=== PATIENT | male | born 1940 | race Caucasian/White ===

== ENCOUNTER 2016-05-08 09:45 | Day surgery (SDC) | payer OTHER, BC ==
[2016-05-04 16:39] VITALS: BMI 26.6
[2016-05-08] MEDS ORDERED: MIDAZOLAM HCL 2 MG/2 ML SINGLE DOSE VIAL ONE ×2 (13:21→13:33)
[2016-05-08] MEDS ORDERED: KETOROLAC TROMETHAMINE 30 MG/1 ML VIAL ONE (13:21)
[2016-05-08] MEDS ORDERED: PROPOFOL 20 ML ONE ×2 (13:21→13:22)
[2016-05-08] MEDS ORDERED: LEVOFLOXACIN 500 MG PREMIX BAG IVPB ONE (13:32)
[2016-05-08] MEDS ORDERED: PROMETHAZINE HCL 25 MG/1 ML VIAL IVPUSH PRN (13:58)
[2016-05-08] MEDS ORDERED: oxyCODONE HCL 5 MG TABLET PO PRN (13:58)
[2016-05-08] MEDS ORDERED: ONDANSETRON 4 MG/2 ML VIAL IVPUSH PRN (13:58)
--- NOTE | 2016-05-08 14:16 | OP ---
Operative Note - Note: Operative Date: 05/08/16 Pre-Operative Diagnosis: left renal calculus Operation: Left ESWL Post-Operative Diagnosis: Same as Pre-op Surgeon: Jeovany Flores MD. Anesthesia: General
[2016-05-08 14:48] VITALS: TEMP 98.1
--- NOTE | 2016-05-08 16:12 | OP ---
DATE OF OPERATION: 05/08/2016 PREOPERATIVE DIAGNOSIS: Left renal calculus. POSTOPERATIVE DIAGNOSIS: Left renal calculus. PROCEDURE: Left extracorporeal shock-wave lithotripsy. HISTORY: This is a very pleasant 75-year-old gentleman with a history of preoperative imaging significant for a 12-mm left renal calculus. After discussing the treatment options, the patient elected to undergo the above-stated procedure. Risks and benefits of treatment and alternative treatments discussed in detail, questions were answered. BRIEF OPERATIVE NOTE: The patient was brought into the operating room, placed in supine position. Once sedation was administered, the stone was localized using sonography and fluoroscopy. Approximately 2500 shocks were delivered in electromagnetic fashion. The stone appeared to fragment radiographically. At this time, the patient was brought to the recovery room in stable and satisfactory condition, will be discharged and follow in 1 week as an outpatient in the office. DAVID MITTAL M.D. [id number]
[2016-05-08 16:22] VITALS: BP 141/70; PULSE 58
[2016-05-09] MEDS ORDERED: ASPIRIN 81 MG CHEWABLE TABLETS PO SCH (10:00)
== END 2016-05-08 16:15 | disposition home or self-care (01) ==
LOC: JASU-SURG 09:45
PROVIDERS: ATTEND Urology
PROC: 0TF4XZZ Fragmentation in Left Kidney Pelvis, External Approach (ICD-10-PCS; principal; 2016-05-08 11:30)
DX: N20.0 Calculus of kidney (principal)
CPT/HCPCS: 94760

== ENCOUNTER 2017-01-25 14:58 | Inpatient (IN) | payer OTHER, BC ==
[2017-01-25] MEDS ORDERED: CEFTRIAXONE 1 GM in DEXTROSE 5%-WATER - 50 ML IVPB ONE (15:28)
[2017-01-25] MEDS ORDERED: CEFTRIAXONE 50 ML ONE (15:35)
--- NOTE | 2017-01-25 15:51 | PDOC ---
History of Present Illness - General History Source: Patient Exam Limitations: No Limitations - History of Present Illness Initial Comments: 01/25/17 16:03 Patient is a 76 year old male with a significant past medical history of who presents to the ED with complaints of hematuria that began 2 days ago. Patient reports getting prostate biopsy [address] toth. He reports experiencing chills, nausea, and fever today at 2:30pm secondary to hematuria. Patient reports experiencing intermittent episodes of weakness secondary to hematuria. He reports being prescribed two antibiotics following prostate biopsy, one 800 mg and the second 500 mg, name unknown. Denies chest pain, SOB. Denies diarrhea, constipation. Denies any other symptoms. Allergies: None Surgical history: None Social history: Lives with . No alcohol. No smoking. No illicit drugs. PMD: Dr. Salcedo. Dr. Toth <Omari Guerra - Last Filed: 01/25/17 16:03> - General History Source: Patient Exam Limitations: No Limitations <Daljit Gardner - Last Filed: 01/29/17 16:29> - General Chief Complaint: Nausea Stated Complaint: POST-PROCEDURE, NAUSEA (PCP SENT) Time Seen by Provider: 01/25/17 15:26 Past History <Omari Guerra - Last Filed: 01/25/17 16:03> - Past Medical History Anemia: No Cardiac Disorders: Yes (CATH WITHOUT STENTS) Disorders: Yes (kidney stones) Kidney Stones: Yes - Surgical History Abdominal Surgery: No Cardiac Surgery: Yes GI Surgery: Yes (Ingun\nal hernia repair) - Immunization History Immunization Up to Date: Yes - Suicide/Smoking/Psychosocial Hx Smoking Status: Yes Smoking History: Current every day smoker Number of Cigarettes Smoked Daily: 15 Information on smoking cessation initiated: No 'Breaking Loose' booklet given: 05/08/16 Hx Alcohol Use: No Drug/Substance Use Hx: No Substance Use Type: None <Daljit Gardner - Last Filed: 01/29/17 16:29> - Past Medical History Allergies/Adverse Reactions: Allergies Allergy/AdvReac Type Severity Reaction Status Date / Time No Known Allergies Allergy Verified 01/25/17 14:59 Home Medications: Ambulatory Orders Aspirin [ASA -] 81 mg PO DAILY 03/20/16 Review of Systems - Review of Systems Able to Perform ROS?: Yes Comments:: 01/25/17 16:03 GENERAL/CONSTITUTIONAL: +Chills. +fever. No weakness. HEAD, EYES, EARS, NOSE AND THROAT: No change in vision. No ear pain or discharge. No sore throat. CARDIOVASCULAR: No chest pain or shortness of breath. RESPIRATORY: +Nausea No cough, wheezing, or hemoptysis. GASTROINTESTINAL: No vomiting, diarrhea or constipation. GENITOURINARY: +Hematuria No dysuria, frequency, or change in urination. MUSCULOSKELETAL: No joint or muscle swelling or pain. No neck or back pain. SKIN: No rash NEUROLOGIC: No headache, vertigo, loss of consciousness, or change in strength/ sensation. ENDOCRINE: No increased thirst. No abnormal weight change. HEMATOLOGIC/LYMPHATIC: No anemia, easy bleeding, or history of blood clots. ALLERGIC/IMMUNOLOGIC: No hives or skin allergy. All Other Systems: Reviewed and Negative <Omari Guerra - Last Filed: 01/25/17 16:03> *Physical Exam - Vital Signs Last Vital Signs Temp Pulse Resp BP Pulse Ox 99.3 F 87 18 144/65 94 L 01/25/17 14:59 01/25/17 14:59 01/25/17 14:59 01/25/17 14:59 01/25/17 14:59 - Physical Exam Comments: 01/25/17 16:03 GENERAL: Awake, alert, and fully oriented, in no acute distress HEAD: No signs of trauma EYES: PERRLA, EOMI, sclera anicteric, conjunctiva clear ENT: Auricles normal inspection, hearing grossly normal, nares patent, oropharynx clear without exudates. Moist mucosa NECK: Normal ROM, supple, no lymphadenopathy, JVD, or masses LUNGS: Breath sounds equal, clear to auscultation bilaterally. No wheezes, and no crackles HEART: Regular rate and rhythm, normal S1 and S2, no murmurs, rubs or gallops ABDOMEN: Soft, nontender, normoactive bowel sounds. No guarding, no rebound. No masses EXTREMITIES: Normal range of motion, no edema. No clubbing or cyanosis. No cords, erythema, or tenderness NEUROLOGICAL: Cranial nerves II through XII grossly intact. Normal speech, normal gait SKIN: Warm, Dry, normal turgor, no rashes or lesions noted. <Omari Guerra - Last Filed: 01/25/17 16:03> - Vital Signs Last Vital Signs Temp Pulse Resp BP Pulse Ox 99.3 F 87 18 144/65 94 L 01/25/17 14:59 01/25/17 14:59 01/25/17 14:59 01/25/17 14:59 01/25/17 14:59 <Daljit Gardner - Last Filed: 01/29/17 16:29> Heart Score/ECG Review #1 ECG reviewed & interpreted by me at: 16:20 01/25/17 16:17 NSR 82, left axis deviation, no std/catherine, QTC 420 msec <Daljit Gardner - Last Filed: 01/29/17 16:29> ED Treatment Course - Medications Given in the ED: ED Medications Discontinued Medications Generic Name Dose Route Start Last Admin Trade Name Freq PRN Reason Stop Dose Admin Ceftriaxone Sodium 1 gm/ 50 mls @ 100 mls/hr 01/25/17 15:28 01/25/17 15:55 Dextrose IVPB 01/25/17 15:57 100 mls/hr ONCE ONE Administration <Omari Guerra - Last Filed: 01/25/17 16:03> - LABORATORY CBC & Chemistry Diagram: 01/29/17 06:30 01/29/17 06:30 <Daljit Gardner - Last Filed: 01/29/17 16:29> Medical Decision Making - Medical Decision Making 01/25/17 15:47 A portion of this note was documented by scribe services under my direction. I have reviewed the details of the note, within reason, and agree with the documentation with the following case summary and management plan written by me. Patient treated in the ED. Nursing notes are reviewed and incorporated into the medical decision-making. Vital signs reviewed. Peripheral IV access obtained by the nurse, laboratory studies are drawn and sent, reviewed and interpreted by myself. Vital Signs Temp Pulse Resp BP Pulse Ox 99.3 F 87 18 144/65 94 L 01/25/17 14:59 01/25/17 14:59 01/25/17 14:59 01/25/17 14:59 01/25/17 14:59 76-year-old male with no medical history presents with fever 101.9 today. 2 days ago, the patient was undergoing a prostate biopsy to rule out prostate cancer. Yesterday, noted to have chills and today developed a fever 101.9. Reports some mild hematuria which was expected post biopsy. Denies cough, vomiting, diarrhea, dysuria. Case discussed with Dr. Toth and aware of plan. The patient may potentially have fevers and infection secondary to seeding from biopsy. We'll give empiric ceftriaxone and obtain labs including cultures. We' ll touch base with patient's urologist Dr. Toth for disposition. <Daljit Gardner - Last Filed: 01/29/17 16:29> *DC/Admit/Observation/Transfer - Attestations Scribe Attestion: 01/25/17 16:03 Documentation prepared by Omari Guerra, acting as medical attendant for Daljit Gardner MD. <Omari Guerra - Last Filed: 01/25/17 16:03> <Daljit Gardner - Last Filed: 01/29/17 16:29> Diagnosis at time of Disposition: Fever - Referrals
[2017-01-25] MEDS ORDERED: ACETAMINOPHEN 325 MG TABLET (FP) PO ONE (15:54)
[2017-01-25] MEDS ORDERED: ONDANSETRON 4 MG/2 ML VIAL IVPB ONE (15:54)
[2017-01-25] MEDS ORDERED: ONDANSETRON 4 MG/2 ML VIAL ONE (15:56)
[2017-01-25] MEDS ORDERED: ACETAMINOPHEN 325 MG TABLET (FP) ONE (15:56)
[2017-01-25 16:32] LABS: BASOPHIL 0.3 % (0-2.0); EOSINOPHIL 1.7 % (0-4.5); MCH 31.3 pg (25.7-33.7); MCHC 33.5 g/dl (32.0-35.9); MEAN CELL VOLUME 93.5 fl (80-96); MEAN PLT VOLUME 9.4 fl (7.5-11.1); NEUTROPHILS 88.8 % (42.8-82.8); PLATELET COUNT 133 K/MM3 (134-434); WHITE BLOOD COUNT 12.8 K/mm3 (4.0-10.0)
[2017-01-25 16:45] LABS: URINE APPEARANCE CLOUDY; URINE BILIRUBIN NEGATIVE (NEGATIVE); URINE BLOOD 3+ (NEGATIVE); URINE COLOR YELLOW; URINE GLUCOSE (UA) NEGATIVE (NEGATIVE); URINE KETONE TRACE (NEGATIVE); URINE NITRITE NEGATIVE (NEGATIVE); URINE UROBILINOGEN NEGATIVE mg/dL (0.2-1.0)
--- NOTE | 2017-01-25 16:50 | PDOC ---
*Physical Exam - Vital Signs Last Vital Signs Temp Pulse Resp BP Pulse Ox 99.3 F 87 18 144/65 94 L 01/25/17 14:59 01/25/17 14:59 01/25/17 14:59 01/25/17 14:59 01/25/17 14:59 ED Treatment Course - LABORATORY CBC & Chemistry Diagram: 01/25/17 16:00 01/25/17 16:00 - ADDITIONAL ORDERS Additional order review: 01/25/17 16:00 RBC 4.47 MCV 93.5 MCHC 33.5 RDW 14.0 MPV 9.4 Neutrophils % 88.8 H D Lymphocytes % 4.7 L D Monocytes % 4.5 Eosinophils % 1.7 Basophils % 0.3 - Medications Given in the ED: ED Medications Discontinued Medications Generic Name Dose Route Start Last Admin Trade Name Freq PRN Reason Stop Dose Admin Acetaminophen 650 mg 01/25/17 15:54 01/25/17 16:03 Tylenol - PO 01/25/17 15:55 650 mg ONCE ONE Administration Ceftriaxone Sodium 1 gm/ 50 mls @ 100 mls/hr 01/25/17 15:28 01/25/17 15:55 Dextrose IVPB 01/25/17 15:57 100 mls/hr ONCE ONE Administration Ondansetron HCl 4 mg 01/25/17 15:54 01/25/17 16:03 Zofran Injection IVPB 01/25/17 15:55 4 mg ONCE ONE Administration Medical Decision Making - Medical Decision Making 01/25/17 16:50 pt signed out to me from Dr. Gardner pt s/p prostate biopsy 2 days ago, on cipro presents with fevers. noted for leukocytpsis of [address] Flores PMLanny salcedo anticipate admission for failed outpatient management and suspicion o bacteremia 01/25/17 17:[address] salcedo agree wit [facility] for management of fever suspected bacteremia stable for [facility] Case discussed in detail with admitting physician including history, physical exam and ancillary studies. Admitting physician has assumed care for the patient, will follow all pending diagnostics and will complete the evaluation and treatment. *DC/Admit/Observation/Transfer Diagnosis at time of Disposition: Fever Qualifiers: Fever type: due to other condition Qualified Code(s): R50.81 - Fever presenting with conditions classified elsewhere; R50.81 - Fever presenting with conditions classified elsewhere - Discharge Dispostion Condition at time of disposition: Stable Admit: Yes - Referrals Referrals: Matt Salcedo MD [Primary Care Provider] - - Patient Instructions - Post Discharge Activity
[2017-01-25 16:55] LABS: INR 1.12 (0.82-1.09); PROTHROMBIN TIME (PATIENT) 12.4 SEC (9.98-11.88)
[2017-01-25 16:58] LABS: ALBUMIN 3.9 g/dl (3.4-5.0); ANION GAP 10 (8-16); BILIRUBIN,TOTAL 0.4 mg/dL (0.2-1.0); CALCIUM 8.8 mg/dL (8.5-10.1); CO2 26 mmol/L (21-32); CREATININE 1.7 mg/dL (0.7-1.3); GLUCOSE,RANDOM 88 mg/dL (74-106); SGOT/AST 22 U/L (15-37); SGPT/ALT 23 U/L (12-78); TOT PROT 7.1 g/dl (6.4-8.2)
[2017-01-25 17:00] LABS: ALK PHOS 68 U/L (45-117); CPK 184 IU/L (39-308); TROPONIN I < 0.02 ng/ml (0.00-0.05)
[2017-01-25 17:01] LABS: URINE PROTEIN 1+ (NEGATIVE)
[2017-01-25 17:02] LABS: URINE MUCUS RARE; URINE RBC 2398 /hpf (0-3); URINE WBC 97 /hpf (3-5)
[2017-01-25 17:44] LABS: URINE LEUK ESTERASE 1+ (NEGATIVE)
[2017-01-25 18:18] LABS: VENOUS PH 7.4 (7.32-7.42)
[2017-01-25 18:19] LABS: VENOUS BLOOD GAS HCO3 25.6 meq/L (19-25)
[2017-01-25] MEDS: SODIUM CHLORIDE 1,000 ML IV SCH (21:03)
[2017-01-25] MEDS: ONDANSETRON 4 MG/2 ML VIAL IVPB PRN (21:04)
[2017-01-26] MEDS: ACETAMINOPHEN 325 MG TABLET (FP) PO PRN ×3 (01:38→19:06)
[2017-01-26] MEDS: ZOLPIDEM TARTRATE 5 MG TABLET PO PRN (01:39)
[2017-01-26 02:34] VITALS: BMI 27.4
[2017-01-26] MEDS ORDERED: FLU VACCINE QUAD 60 MCG/0.5 ML (MDV 17-18) IM ONE (02:34)
[2017-01-26] MEDS ORDERED: PNEUMOC 13-VAL CONJ-DIP CRM/PF 0.5 ML DISP.SYRIN IM ONE (02:34)
[2017-01-26] MEDS: ONDANSETRON 4 MG/2 ML VIAL IVPB PRN (03:48)
[2017-01-26 07:12] LABS: BASOPHIL 0.2 % (0-2.0); EOSINOPHIL 1.7 % (0-4.5); MCH 31.1 pg (25.7-33.7); MEAN CELL VOLUME 94.3 fl (80-96); MEAN PLT VOLUME 9.1 fl (7.5-11.1); NEUTROPHILS 77.4 % (42.8-82.8); PLATELET COUNT 107 K/MM3 (134-434); RDW 13.8 % (11.9-15.9); WHITE BLOOD COUNT 12.2 K/mm3 (4.0-10.0)
[2017-01-26 07:30] LABS: ALK PHOS 53 U/L (45-117); ANION GAP 6 (8-16); BILIRUBIN,TOTAL 0.6 mg/dL (0.2-1.0); CALCIUM 8.5 mg/dL (8.5-10.1); CO2 28 mmol/L (21-32); CREATININE 1.7 mg/dL (0.7-1.3); GLUCOSE,RANDOM 103 mg/dL (74-106); SGOT/AST 17 U/L (15-37); SGPT/ALT 17 U/L (12-78)
[2017-01-26] MEDS: CEFTRIAXONE 1 GM in DEXTROSE 5%-WATER - 50 ML IVPB SCH ×2 (10:00→11:32)
[2017-01-26] MEDS ORDERED: DEXTROSE 5%-WATER - 50 ML IVPB ONE (10:36)
[2017-01-26] MEDS ORDERED: cefTRIAXone SODIUM 1 GM VIAL ONE (10:36)
[2017-01-26] MEDS: PANTOPRAZOLE 40 MG TABLET (FP) PO SCH (10:44)
[2017-01-26] MEDS ORDERED: PT OWN MED DRAWER 7, Y5N ONE (13:12)
--- NOTE | 2017-01-26 13:36 | CON.ID ---
Consult Consult Specialty:: infectious diseases Referred by:: Reason for Consultation:: sepsis,bacteremia - History of Present Illness Chief Complaint: weakness nausea and fever History of Present Illness: 76 year old male wiadmitted with complaints of hematuria that began 2 days ago. Patient reports getting prostate biopsy 2 days ago . He reports experiencing chills, nausea, and fever and hematuria. Patient reports experiencing intermittent episodes of weakness He reports being prescribed two antibiotics following prostate biopsy, one 800 mg and the second 500 mg, name unknown. patient mentions that he has been not feeling after being in the hospital patient got ceftriaxone and inspite of that he has been spiking high grade fever also his blood cx has turned positive patients blood pressure has been on the lower side and after fluids patient blood pressure has stabilized no other issues patient has been also c/o of chills - History Source History Provided By: Patient Limitations to Obtaining History: No Limitations - Alcohol/Substance Use Hx Alcohol Use: No - Smoking History Smoking history: Current every day smoker Aproximately how many cigarettes per day: 15 Home Medications - Allergies Allergies/Adverse Reactions: Allergies Allergy/AdvReac Type Severity Reaction Status Date / Time No Known Allergies Allergy Verified 01/25/17 14:59 - Home Medications Home Medications: Ambulatory Orders Aspirin [ASA -] 81 mg PO DAILY 03/20/16 Review of Systems - Review of Systems Constitutional: reports: Chills, Fever HENT: reports: No Symptoms Neck: reports: No Symptoms Cardiovascular: reports: No Symptoms Respiratory: reports: No Symptoms Gastrointestinal: reports: Nausea Genitourinary: reports: Hematuria, Pain Integumentary: reports: No Symptoms Neurological: reports: No Symptoms Endocrine: reports: No Symptoms Hematology/Lymphatic: reports: No Symptoms Psychiatric: reports: No Symptoms Physical Exam Vital Signs: Vital Signs Temperature 100.2 F H 01/26/17 12:20 Pulse Rate 24 L 01/26/17 12:20 Respiratory Rate 81 H 01/26/17 12:20 Blood Pressure 109/73 01/26/17 12:20 O2 Sat by Pulse Oximetry (%) 99 01/25/17 21:00 Constitutional: Yes: Well Nourished, Calm, Mild Distress Eyes: Yes: Conjunctiva Clear HENT: Yes: Atraumatic Neck: Yes: Supple, Trachea Midline Cardiovascular: Yes: Regular Rate and Rhythm Respiratory: Yes: Regular, CTA Bilaterally Gastrointestinal: Yes: Normal Bowel Sounds, Soft Renal/: Yes: Hematuria Musculoskeletal: Yes: WNL Extremities: Yes: WNL Neurological: Yes: Alert, Oriented Psychiatric: Yes: Alert, Oriented Labs: CBC, BMP 01/26/17 06:00 01/26/17 06:00 Assessment/Plan patient in sepsis sepsis hypotension bacteremia gm negative nausea r/o prostatic abscess/collection leukocytosis plan i ahve started patient on meropenam will order prostate studies very close watch on his bp monitor fever rest as per primary team
[2017-01-26] MEDS: MEROPENEM 1 GM in DEXTROSE 5%-WATER - 100 ML IVPB SCH ×2 (14:02→19:08)
--- NOTE | 2017-01-26 19:15 | EKG ---
Test Reason : Blood Pressure : / mmHG Vent. Rate : 082 BPM Atrial Rate : 082 BPM P-R Int : 154 ms QRS Dur : 108 ms QT Int : 360 ms P-R-T Axes : 060 -54 042 degrees QTc Int : 420 ms NORMAL SINUS RHYTHM LEFT ANTERIOR FASCICULAR BLOCK ABNORMAL ECG WHEN COMPARED WITH ECG OF 20-MAR-2016 07:33, ABSENCE OF VPBs REPEAT EKG IF CLINICALLY INDICATED Confirmed by DIANA WOODARD MD ([id number]) on 01/26/2017 7:14:30 PM Referred By: Confirmed By:DIANA WOODARD MD
--- NOTE | 2017-01-26 20:57 | HP ---
Admitting History and Physical - Primary Care Physician PCP: Matt Salcedo - Admission Chief Complaint: fever with chills History of Present Illness: 76 year old male with no significant past medical history admitted with c/o fever with chills, nausea, and hematuria. Patient is s/p prostate biopsy [address] Schilling. He started feeling weak in the night after coming back from the biopsy. The next day he developed low grade fever with chills and hematuria. He called the urologist, who prescribed abx for him. His condition became progressively worse and was advised to go to the hospital. Patient seen and examined. Still c/o nausea. Continues to have fever with chills , and hematuria. History Source: Patient Limitations to Obtaining History: No Limitations - Past Medical History Renal/: Yes: BPH - Smoking History Smoking history: Current every day smoker Aproximately how many cigarettes per day: 15 - Alcohol/Substance Use Hx Alcohol Use: No Home Medications - Allergies Allergies/Adverse Reactions: Allergies Allergy/AdvReac Type Severity Reaction Status Date / Time No Known Allergies Allergy Verified 01/25/17 14:59 - Home Medications Home Medications: Ambulatory Orders Aspirin [ASA -] 81 mg PO DAILY 03/20/16 Review of Systems - Review of Systems Constitutional: reports: Chills, Fever, Lethargy, Weakness Gastrointestinal: reports: Nausea Genitourinary: reports: Hematuria Physical Examination Vital Signs: Vital Signs Temperature 100.1 F H 01/26/17 20:35 Pulse Rate 67 01/26/17 20:35 Respiratory Rate 20 01/26/17 20:35 Blood Pressure 114/54 01/26/17 20:35 O2 Sat by Pulse Oximetry (%) 95 01/26/17 11:00 Constitutional: Yes: Well Nourished, Anxious, Mild Distress Eyes: Yes: Conjunctiva Clear, EOM Intact HENT: Yes: Atraumatic, Normocephalic Neck: Yes: Supple, Trachea Midline Cardiovascular: Yes: Regular Rate and Rhythm Respiratory: Yes: Regular, CTA Bilaterally Gastrointestinal: Yes: Normal Bowel Sounds, Soft ...Rectal Exam: Yes: Deferred Extremities: Yes: WNL Edema: No Peripheral Pulses WNL: Yes Neurological: Yes: Alert, Oriented ...Motor Strength: WNL Labs: CBC, BMP 01/26/17 06:00 01/26/17 06:00 Imaging - Results Chest X-ray: Report Reviewed Assessment/Plan 1) Sepsis secondary to source Blood cultures prelim report: Gram Negative Bacilli. ID consult appreciated. Continue Ceftriaxone and Meropenem. 2) Acute renal Failure Continue IV fluids 3) Hematuria S/P Prostae biopsy 2 days ago. Urologist consulted.
[2017-01-26] MEDS: SODIUM CHLORIDE 1,000 ML IV SCH (21:19)
[2017-01-27] MEDS: ACETAMINOPHEN 325 MG TABLET (FP) PO PRN ×3 (01:15→17:14)
[2017-01-27] MEDS: MEROPENEM 1 GM in DEXTROSE 5%-WATER - 100 ML IVPB SCH ×3 (01:51→17:14)
[2017-01-27] MEDS: SODIUM CHLORIDE 1,000 ML IV SCH ×2 (05:00→21:40)
[2017-01-27 07:24] LABS: ALBUMIN 2.8 g/dl (3.4-5.0); ANION GAP 7 (8-16); BASOPHIL 0.4 % (0-2.0); CALCIUM 7.9 mg/dL (8.5-10.1); CO2 26 mmol/L (21-32); EOSINOPHIL 2.9 % (0-4.5); GLUCOSE,RANDOM 96 mg/dL (74-106); MCH 31.4 pg (25.7-33.7); MCHC 33.7 g/dl (32.0-35.9); MEAN CELL VOLUME 93.2 fl (80-96); MEAN PLT VOLUME 8.9 fl (7.5-11.1); NEUTROPHILS 77.2 % (42.8-82.8); PLATELET COUNT 90 K/MM3 (134-434); RDW 13.7 % (11.9-15.9); WHITE BLOOD COUNT 7.7 K/mm3 (4.0-10.0)
[2017-01-27 07:29] LABS: ALK PHOS 55 U/L (45-117); BILIRUBIN,TOTAL 0.5 mg/dL (0.2-1.0); CREATININE 1.4 mg/dL (0.7-1.3); SGOT/AST 20 U/L (15-37); SGPT/ALT 20 U/L (12-78); TOT PROT 5.8 g/dl (6.4-8.2)
[2017-01-27] MEDS ORDERED: cefTRIAXone SODIUM 1 GM VIAL ONE (10:15)
[2017-01-27] MEDS ORDERED: DEXTROSE 5%-WATER - 50 ML IVPB ONE (10:15)
[2017-01-27] MEDS: CEFTRIAXONE 1 GM in DEXTROSE 5%-WATER - 50 ML IVPB SCH (10:21)
[2017-01-27] MEDS: PANTOPRAZOLE 40 MG TABLET (FP) PO SCH (10:22)
--- NOTE | 2017-01-27 14:01 | PN ---
Progress Note, Physician History of Present Illness: spiked fevers feels better currently afebrile - Current Medication List Current Medications: Active Medications Acetaminophen (Tylenol -) 650 mg PO Q6H PRN PRN Reason: FEVER OR PAIN Last Admin: 01/27/17 08:54 Dose: 650 mg Ceftriaxone Sodium 1 gm/ (Dextrose) 50 mls @ 100 mls/hr IVPB DAILY SHRUTHI Last Admin: 01/27/17 10:21 Dose: 100 mls/hr Sodium Chloride (Normal Saline -) 1,000 mls @ 75 mls/hr IV ASDIR SHRUTHI Last Admin: 01/27/17 05:00 Dose: 75 mls/hr Meropenem 1 gm/ Dextrose 100 mls @ 100 mls/hr IVPB Q8H-IV SHRUTHI PRN Reason: Protocol Last Admin: 01/27/17 10:22 Dose: 100 mls/hr Ondansetron HCl (Zofran Injection) 4 mg IVPB Q6H PRN PRN Reason: NAUSEA Last Admin: 01/26/17 03:48 Dose: 4 mg Pantoprazole Sodium (Protonix -) 40 mg PO DAILY SHRUTHI Last Admin: 01/27/17 10:22 Dose: 40 mg Zolpidem Tartrate (Ambien -) 5 mg PO HS PRN Last Admin: 01/26/17 01:39 Dose: 5 mg - Objective Vital Signs: Vital Signs Temperature 99.4 F 01/27/17 09:10 Pulse Rate 70 01/27/17 09:10 Respiratory Rate 18 01/27/17 09:10 Blood Pressure 130/70 01/27/17 09:10 O2 Sat by Pulse Oximetry (%) 94 L 01/26/17 21:00 Constitutional: Yes: No Distress, Calm Cardiovascular: Yes: Regular Rate and Rhythm Respiratory: Yes: Regular, CTA Bilaterally Gastrointestinal: Yes: Normal Bowel Sounds, Soft Musculoskeletal: Yes: WNL Extremities: Yes: WNL Neurological: Yes: Alert, Oriented Labs: CBC, BMP 01/27/17 06:15 01/27/17 06:15 INR, PTT INR 1.12 (0.82-1.09) 01/25/17 16:00 - ....Imaging Ultrasound: Image Reviewed (report awaited) Assessment/Plan patient in sepsis sepsis hypotension bacteremia gm negative nausea r/o prostatic abscess/collection leukocytosis plan continue meropenam monitor fevers await for report of u/s rest as per primary
--- NOTE | 2017-01-27 17:11 | PN ---
Progress Note (short form) - Note Progress Note: Patient seen and examined. Feeling better as compared to yesterday. Still febrile and nauseous. Hematuria improving. Discussed in detail with patient. History Source: Patient Limitations to Obtaining History: No Limitations - Past Medical History Renal/: Yes: BPH - Smoking History Smoking history: Current every day smoker Aproximately how many cigarettes per day: 15 - Alcohol/Substance Use Hx Alcohol Use: No Home Medications - Allergies Allergies/Adverse Reactions: Allergies Allergy/AdvReac Type Severity Reaction Status Date / Time No Known Allergies Allergy Verified 01/25/17 14:59 - Home Medications Home Medications: Ambulatory Orders Aspirin [ASA -] 81 mg PO DAILY 03/20/16 Review of Systems - Review of Systems Constitutional: reports: Chills, Fever, Lethargy, Weakness Gastrointestinal: reports: Nausea Genitourinary: reports: Hematuria Physical Examination Vital Signs: Vital Signs Period Temp Pulse Resp BP Sys/Mon Pulse Ox Last 24 Hr 98.4 F-101.2 F 63-70 16-20 114-137/54-70 94-95 Constitutional: Yes: Well Nourished, Anxious, Mild Distress Eyes: Yes: Conjunctiva Clear, EOM Intact HENT: Yes: Atraumatic, Normocephalic Neck: Yes: Supple, Trachea Midline Cardiovascular: Yes: Regular Rate and Rhythm Respiratory: Yes: Regular, CTA Bilaterally Gastrointestinal: Yes: Normal Bowel Sounds, Soft ...Rectal Exam: Yes: Deferred Extremities: Yes: WNL Edema: No Peripheral Pulses WNL: Yes Neurological: Yes: Alert, Oriented ...Motor Strength: WNL Labs: CBC, BMP 01/27/17 06:15 01/27/17 06:15 Microbiology 01/25/17 15:50 Blood - Peripheral Venous Blood Culture - Preliminary NO GROWTH OBTAINED AFTER 48 HOURS, INCUBATION TO CONTINUE FOR 3 DAYS. 01/25/17 16:30 Urine - Urine Clean Catch Urine Culture - Final NO GROWTH OBTAINED 01/25/17 15:50 Blood - Peripheral Venous Blood Culture - Preliminary Non Lactose Fermenting Gnb Current Medications Acetaminophen (Tylenol -) 650 mg PO Q6H PRN PRN Reason: FEVER OR PAIN Last Admin: 01/27/17 08:54 Dose: 650 mg Ceftriaxone Sodium 1 gm/ (Dextrose) 50 mls @ 100 mls/hr IVPB DAILY SHRUTHI Last Admin: 01/27/17 10:21 Dose: 100 mls/hr Sodium Chloride (Normal Saline -) 1,000 mls @ 75 mls/hr IV ASDIR SHRUTHI Last Admin: 01/27/17 05:00 Dose: 75 mls/hr Meropenem 1 gm/ Dextrose 100 mls @ 100 mls/hr IVPB Q8H-IV SHRUTHI PRN Reason: Protocol Last Admin: 01/27/17 10:22 Dose: 100 mls/hr Ondansetron HCl (Zofran Injection) 4 mg IVPB Q6H PRN PRN Reason: NAUSEA Last Admin: 01/26/17 03:48 Dose: 4 mg Pantoprazole Sodium (Protonix -) 40 mg PO DAILY SHRUTHI Last Admin: 01/27/17 10:22 Dose: 40 mg Zolpidem Tartrate (Ambien -) 5 mg PO HS PRN Last Admin: 01/26/17 01:39 Dose: 5 mg Imaging - Results Chest X-ray: Report Reviewed Assessment/Plan 1) Sepsis secondary to source Blood cultures prelim report: Gram Negative Bacilli. Continue Ceftriaxone and Meropenem. ID follow up appreciated. 2) Acute renal Failure Improving. Continue IV fluids 3) Hematuria Improving S/P Prostate biopsy. Awaiting ultrasound results. Urologist consulted.
[2017-01-28] MEDS: MEROPENEM 1 GM in DEXTROSE 5%-WATER - 100 ML IVPB SCH ×3 (02:02→18:26)
[2017-01-28] MEDS: ACETAMINOPHEN 325 MG TABLET (FP) PO PRN ×2 (02:34→21:38)
[2017-01-28 08:10] LABS: BASOPHIL 0.6 % (0-2.0); EOSINOPHIL 4.8 % (0-4.5); MCHC 33.3 g/dl (32.0-35.9); MEAN CELL VOLUME 93.1 fl (80-96); MEAN PLT VOLUME 8.6 fl (7.5-11.1); PLATELET COUNT 91 K/MM3 (134-434); RDW 13.4 % (11.9-15.9); WHITE BLOOD COUNT 6.5 K/mm3 (4.0-10.0)
[2017-01-28] MEDS ORDERED: PT OWN MED DRAWER 7, Y5N ONE ×2 (10:28→18:19)
[2017-01-28] MEDS: PANTOPRAZOLE 40 MG TABLET (FP) PO SCH (10:34)
[2017-01-28 12:08] LABS: ALBUMIN 2.7 g/dl (3.4-5.0); ANION GAP 6 (8-16); BILIRUBIN,TOTAL 0.4 mg/dL (0.2-1.0); CALCIUM 7.9 mg/dL (8.5-10.1); CO2 26 mmol/L (21-32); CREATININE 1.1 mg/dL (0.7-1.3); GLUCOSE,RANDOM 94 mg/dL (74-106); SGOT/AST 22 U/L (15-37); SGPT/ALT 22 U/L (12-78); TOT PROT 5.6 g/dl (6.4-8.2)
[2017-01-28 12:09] LABS: ALK PHOS 50 U/L (45-117)
[2017-01-28] MEDS: CEFTRIAXONE 1 GM in DEXTROSE 5%-WATER - 50 ML IVPB SCH (12:49)
[2017-01-28] MEDS: SODIUM CHLORIDE 1,000 ML IV SCH (14:01)
--- NOTE | 2017-01-28 16:09 | CON.GU ---
Consult - History of Present Illness History of Present Illness: 76 yo male s/p prostate biopsy last week with Dr Flores, now admitted with fever, gross hematuria. Clinically improving with IV abx. Urine culture pos - Past Medical History Renal/: Yes: BPH - Alcohol/Substance Use Hx Alcohol Use: No - Smoking History Smoking history: Current every day smoker Aproximately how many cigarettes per day: 15 Home Medications - Allergies Allergies/Adverse Reactions: Allergies Allergy/AdvReac Type Severity Reaction Status Date / Time No Known Allergies Allergy Verified 01/25/17 14:59 - Home Medications Home Medications: Ambulatory Orders Aspirin [ASA -] 81 mg PO DAILY 03/20/16 Physical Exam- Vital Signs: Vital Signs Temperature 98.7 F 01/28/17 13:59 Pulse Rate 77 01/28/17 13:59 Respiratory Rate 20 01/28/17 09:19 Blood Pressure 135/72 01/28/17 13:59 O2 Sat by Pulse Oximetry (%) 95 01/28/17 11:00 Renal/: Yes: WNL Labs: CBC, BMP 01/28/17 07:40 01/28/17 07:40 Imaging - Results Ultrasound: Report Reviewed Problem List - Problems (1) Prostatitis, acute Assessment/Plan: resolving prostatitis, abx as per ID, no intervention necessary Code(s): N41.0 - ACUTE PROSTATITIS
--- NOTE | 2017-01-28 16:23 | PN ---
Physical Exam: SUBJECTIVE: Patient seen and examined at bedside. Hematuria only during micturation. Denies all c/o. OBJECTIVE: Vital Signs Period Temp Pulse Resp BP Sys/Mon Pulse Ox Last 24 Hr 98.6 F-100.2 F 60-77 18-20 121-147/59-76 95-95 GENERAL: The patient is awake, alert, and fully oriented, in no acute distress. LUNGS: Breath sounds equal, clear to auscultation bilaterally, no wheezes, no crackles, no accessory muscle use. HEART: Regular rate and rhythm, S1, S2 without murmur, rub or gallop. ABDOMEN: Soft, nontender, nondistended, normoactive bowel sounds, no guarding, no rebound, no hepatosplenomegaly, no masses. EXTREMITIES: 2+ pulses, warm, well-perfused, no edema. NEUROLOGICAL: Cranial nerves II through XII grossly intact. Normal speech, gait steady. Laboratory Results - last 24 hr 01/28/17 01/28/17 07:40 07:40 WBC 6.5 RBC 3.95 L Hgb 12.3 Hct 36.8 MCV 93.1 MCH 31.0 MCHC 33.3 RDW 13.4 Plt Count 91 L MPV 8.6 Neutrophils % 67.0 Lymphocytes % 17.4 D Monocytes % 10.2 Eosinophils % 4.8 H Basophils % 0.6 Sodium 142 Potassium 4.4 Chloride 110 H Carbon Dioxide 26 Anion Gap 6 L BUN 17 D Creatinine 1.1 D Creat Clearance w eGFR > 60 Random Glucose 94 Calcium 7.9 L Total Bilirubin 0.4 AST 22 ALT 22 Alkaline Phosphatase 50 Total Protein 5.6 L Albumin 2.7 L Active Medications Generic Name Dose Route Start Last Admin Trade Name Freq PRN Reason Stop Dose Admin Acetaminophen 650 mg 01/25/17 20:33 01/28/17 02:34 Tylenol - PO 650 mg Q6H PRN Administration FEVER OR PAIN Sodium Chloride 1,000 mls @ 75 mls/hr 01/25/17 20:45 01/28/17 14:01 Normal Saline - IV 75 mls/hr ASDIR SHRUTHI Administration Meropenem 1 gm/ Dextrose 100 mls @ 100 mls/hr 01/26/17 13:00 01/28/17 10:34 IVPB 100 mls/hr Q8H-IV SHRUTHI Administration Protocol CEFTRIAXONE 1 G/50 ML PREMIX 50 mls @ 100 mls/hr 01/29/17 10:00 Ceftriaxone 1 Gm-D5w Bag IVPB 02/01/17 10:29 DAILY SHRUTHI Ondansetron HCl 4 mg 01/25/17 20:33 01/26/17 03:48 Zofran Injection IVPB 4 mg Q6H PRN Administration NAUSEA Pantoprazole Sodium 40 mg 01/26/17 10:00 01/28/17 10:34 Protonix - PO 40 mg DAILY SHRUTHI Administration Zolpidem Tartrate 5 mg 01/26/17 01:23 01/26/17 01:39 Ambien - PO 5 mg HS PRN Administration ASSESSMENT/PLAN: A: 76yo man s/p prostate biopsy last week with acute prostatitis P: #Acute Prostatitis - meropenem - ceftriaxone - Appreciate - Appreciate ID #Sepsis- urinary - SIRS (+) upon arrival - SIRS resolved on 01/26 - WBC- WNL - Appreciate ID #F/E/N - replete prn - regular diet #PPX - OOB Dispo- requires continued IV abx therapy. Will d/c when transition to PO abx Visit type - Emergency Visit Emergency Visit: Yes ED Registration Date: 01/25/17 Care time: The patient presented to the Emergency Department on the above date and was hospitalized for further evaluation of their emergent condition. - New Patient This patient is new to me today: Yes Date on this admission: 01/28/17 - Critical Care Critical Care patient: No
--- NOTE | 2017-01-28 18:15 | PN ---
Progress Note, Physician History of Present Illness: doing well no issues afebrile - Current Medication List Current Medications: Active Medications Acetaminophen (Tylenol -) 650 mg PO Q6H PRN PRN Reason: FEVER OR PAIN Last Admin: 01/28/17 02:34 Dose: 650 mg Sodium Chloride (Normal Saline -) 1,000 mls @ 75 mls/hr IV ASDIR SHRUTHI Last Admin: 01/28/17 14:01 Dose: 75 mls/hr Meropenem 1 gm/ Dextrose 100 mls @ 100 mls/hr IVPB Q8H-IV SHRUTHI PRN Reason: Protocol Last Admin: 01/28/17 10:34 Dose: 100 mls/hr CEFTRIAXONE 1 G/50 ML PREMIX (Ceftriaxone 1 Gm-D5w Bag) 50 mls @ 100 mls/hr IVPB DAILY SHRUTHI Stop: 02/01/17 10:29 Ondansetron HCl (Zofran Injection) 4 mg IVPB Q6H PRN PRN Reason: NAUSEA Last Admin: 01/26/17 03:48 Dose: 4 mg Pantoprazole Sodium (Protonix -) 40 mg PO DAILY SHRUTHI Last Admin: 01/28/17 10:34 Dose: 40 mg Zolpidem Tartrate (Ambien -) 5 mg PO HS PRN Last Admin: 01/26/17 01:39 Dose: 5 mg - Objective Vital Signs: Vital Signs Temperature 98.7 F 01/28/17 13:59 Pulse Rate 77 01/28/17 13:59 Respiratory Rate 20 01/28/17 09:19 Blood Pressure 135/72 01/28/17 13:59 O2 Sat by Pulse Oximetry (%) 95 01/28/17 11:00 Constitutional: Yes: No Distress, Calm Cardiovascular: Yes: Regular Rate and Rhythm Respiratory: Yes: Regular, CTA Bilaterally Gastrointestinal: Yes: Normal Bowel Sounds, Soft Musculoskeletal: Yes: WNL Extremities: Yes: WNL Neurological: Yes: Alert, Oriented Psychiatric: Yes: Alert, Oriented Labs: CBC, BMP 01/28/17 07:40 01/28/17 07:40 INR, PTT INR 1.12 (0.82-1.09) 01/25/17 16:00 Assessment/Plan patient in sepsis sepsis hypotension bacteremia gm negative nausea r/o prostatic abscess/collection leukocytosis plan continue meropenam monitor fevers await for repeat cx
[2017-01-28] MEDS: ZOLPIDEM TARTRATE 5 MG TABLET PO PRN (21:38)
[2017-01-29] MEDS ORDERED: PT OWN MED DRAWER 7, Y5N ONE ×3 (00:43→17:29)
[2017-01-29] MEDS: MEROPENEM 1 GM in DEXTROSE 5%-WATER - 100 ML IVPB SCH ×3 (02:24→17:32)
[2017-01-29] MEDS: SODIUM CHLORIDE 1,000 ML IV SCH (05:00)
[2017-01-29 07:07] LABS: BASOPHIL 0.4 % (0-2.0); EOSINOPHIL 5.6 % (0-4.5); MCH 31.1 pg (25.7-33.7); MCHC 33.6 g/dl (32.0-35.9); MEAN CELL VOLUME 92.5 fl (80-96); MEAN PLT VOLUME 8.8 fl (7.5-11.1); NEUTROPHILS 59.5 % (42.8-82.8); PLATELET COUNT 98 K/MM3 (134-434); RDW 13.5 % (11.9-15.9); WHITE BLOOD COUNT 6.7 K/mm3 (4.0-10.0)
[2017-01-29 07:29] LABS: ANION GAP 6 (8-16); CALCIUM 7.8 mg/dL (8.5-10.1); CO2 29 mmol/L (21-32); GLUCOSE,RANDOM 96 mg/dL (74-106)
[2017-01-29] MEDS: PANTOPRAZOLE 40 MG TABLET (FP) PO SCH (10:35)
[2017-01-29] MEDS: CEFTRIAXONE 1 G/50 ML PREMIX 50 ML IVPB SCH (10:35)
--- NOTE | 2017-01-29 12:03 | CONSULT ---
Consult - text type - Consultation Consultation Note: 76 yo male s/p transrectal us guided prostate needle biopsy w pre procedural cefuroxime bactrim and tobramycin Pt became septic approx 24 hrs post procedure pos G neg BCult currently afebrile and wbc normalized Cont iv abx then po as per ID for pos BCult clinically doing well Biopsy report pending
[2017-01-29] MEDS: NICOTINE 21 MG/24 HOURS TOPICAL PATCH TD SCH (12:21)
--- NOTE | 2017-01-29 12:43 | PN ---
Progress Note, Physician History of Present Illness: doing well no issues afebrile - Current Medication List Current Medications: Active Medications Acetaminophen (Tylenol -) 650 mg PO Q6H PRN PRN Reason: FEVER OR PAIN Last Admin: 01/28/17 21:38 Dose: 650 mg Sodium Chloride (Normal Saline -) 1,000 mls @ 75 mls/hr IV ASDIR SHRUTHI Last Admin: 01/29/17 05:00 Dose: 75 mls/hr Meropenem 1 gm/ Dextrose 100 mls @ 100 mls/hr IVPB Q8H-IV SHRUTHI PRN Reason: Protocol Last Admin: 01/29/17 10:35 Dose: 100 mls/hr CEFTRIAXONE 1 G/50 ML PREMIX (Ceftriaxone 1 Gm-D5w Bag) 50 mls @ 100 mls/hr IVPB DAILY SHRUTHI Stop: 02/01/17 10:29 Last Admin: 01/29/17 10:35 Dose: 100 mls/hr Nicotine (Nicoderm Patch -) 21 mg TD DAILY SHRUTHI Last Admin: 01/29/17 12:21 Dose: 21 mg Ondansetron HCl (Zofran Injection) 4 mg IVPB Q6H PRN PRN Reason: NAUSEA Last Admin: 01/26/17 03:48 Dose: 4 mg Pantoprazole Sodium (Protonix -) 40 mg PO DAILY SHRUTHI Last Admin: 01/29/17 10:35 Dose: 40 mg - Objective Vital Signs: Vital Signs Temperature 98.4 F 01/29/17 09:34 Pulse Rate 72 01/29/17 09:34 Respiratory Rate 18 01/29/17 09:34 Blood Pressure 139/81 01/29/17 09:34 O2 Sat by Pulse Oximetry (%) 94 L 01/29/17 10:00 Constitutional: Yes: No Distress, Calm Cardiovascular: Yes: Regular Rate and Rhythm Respiratory: Yes: Regular, CTA Bilaterally Gastrointestinal: Yes: Normal Bowel Sounds, Soft Musculoskeletal: Yes: WNL Extremities: Yes: WNL Neurological: Yes: Alert, Oriented Psychiatric: Yes: Alert Labs: CBC, BMP 01/29/17 06:30 01/29/17 06:30 INR, PTT INR 1.12 (0.82-1.09) 01/25/17 16:00 Assessment/Plan patient in sepsis sepsis hypotension bacteremia gm negative nausea r/o prostatic abscess/collection leukocytosis plan continue meropenam repeat cx noted tomorrow will e the last day of iv abx then we will switch to oral on
--- NOTE | 2017-01-29 15:55 | PN ---
Progress Note, Physician Chief Complaint: Mr Rubio says he is feeling well and is without complaint. No cp, sob, n/v, pain on urination. - Current Medication List Current Medications: Active Medications Acetaminophen (Tylenol -) 650 mg PO Q6H PRN PRN Reason: FEVER OR PAIN Last Admin: 01/28/17 21:38 Dose: 650 mg Sodium Chloride (Normal Saline -) 1,000 mls @ 75 mls/hr IV ASDIR SHRUTHI Last Admin: 01/29/17 05:00 Dose: 75 mls/hr Meropenem 1 gm/ Dextrose 100 mls @ 100 mls/hr IVPB Q8H-IV SHRUTHI PRN Reason: Protocol Last Admin: 01/29/17 10:35 Dose: 100 mls/hr CEFTRIAXONE 1 G/50 ML PREMIX (Ceftriaxone 1 Gm-D5w Bag) 50 mls @ 100 mls/hr IVPB DAILY SHRUTHI Stop: 02/01/17 10:29 Last Admin: 01/29/17 10:35 Dose: 100 mls/hr Nicotine (Nicoderm Patch -) 21 mg TD DAILY SHRUTHI Last Admin: 01/29/17 12:21 Dose: 21 mg Ondansetron HCl (Zofran Injection) 4 mg IVPB Q6H PRN PRN Reason: NAUSEA Last Admin: 01/26/17 03:48 Dose: 4 mg Pantoprazole Sodium (Protonix -) 40 mg PO DAILY SHRUTHI Last Admin: 01/29/17 10:35 Dose: 40 mg - Objective Vital Signs: Vital Signs Temperature 36.8 C 01/29/17 13:55 Pulse Rate 69 01/29/17 13:55 Respiratory Rate 18 01/29/17 09:34 Blood Pressure 129/57 01/29/17 13:55 O2 Sat by Pulse Oximetry (%) 94 L 01/29/17 10:00 Constitutional: Yes: Well Nourished, No Distress, Calm Cardiovascular: Yes: Regular Rate and Rhythm. No: Gallop, Murmur, Rub Respiratory: Yes: Regular, CTA Bilaterally. No: Rales, Rhonchi, Wheezes Gastrointestinal: Yes: Normal Bowel Sounds, Soft. No: Distention, Tenderness Extremities: Yes: WNL Edema: No Labs: CBC, BMP 01/29/17 06:30 01/29/17 06:30 INR, PTT INR 1.12 (0.82-1.09) 01/25/17 16:00 Problem List - Problems (1) Prostatitis, acute Assessment/Plan: -improving -ID following and appreciate assistance -continue merrem and rocephin currently -plan to change to oral antibiotics in am Code(s): N41.0 - ACUTE PROSTATITIS (2) Sepsis Assessment/Plan: -present on admission -resolved Code(s): A41.9 - SEPSIS, UNSPECIFIED ORGANISM Qualifiers: Sepsis type: Escherichia coli Qualified Code(s): A41.51 - Sepsis due to Escherichia coli [E. coli]; A41.51 - Sepsis due to Escherichia coli [E. coli]; A41.51 - Sepsis due to Escherichia coli [E. coli] (3) JAMEEL (acute kidney injury) Assessment/Plan: -resolved -will stop IVF Code(s): N17.9 - ACUTE KIDNEY FAILURE, UNSPECIFIED
[2017-01-29] MEDS: ZOLPIDEM TARTRATE 5 MG TABLET PO PRN (21:36)
[2017-01-30] MEDS: MEROPENEM 1 GM in DEXTROSE 5%-WATER - 100 ML IVPB SCH ×3 (02:42→18:45)
[2017-01-30 08:09] LABS: BASOPHIL 0.5 % (0-2.0); EOSINOPHIL 4.9 % (0-4.5); MCHC 33.6 g/dl (32.0-35.9); MEAN CELL VOLUME 92.2 fl (80-96); MEAN PLT VOLUME 8.9 fl (7.5-11.1); NEUTROPHILS 59.3 % (42.8-82.8); PLATELET COUNT 108 K/MM3 (134-434); RDW 13.4 % (11.9-15.9); WHITE BLOOD COUNT 8.1 K/mm3 (4.0-10.0)
[2017-01-30 08:33] LABS: ANION GAP 6 (8-16); CALCIUM 8.3 mg/dL (8.5-10.1); CO2 28 mmol/L (21-32); GLUCOSE,RANDOM 82 mg/dL (74-106); MAGNESIUM 2.4 mg/dL (1.8-2.4)
[2017-01-30 08:34] LABS: CREATININE 0.9 mg/dL (0.7-1.3); PHOSPHOROUS 2.3 mg/dL (2.5-4.9)
[2017-01-30] MEDS ORDERED: PT OWN MED DRAWER 7, Y5N ONE ×2 (09:15→18:41)
[2017-01-30] MEDS: PANTOPRAZOLE 40 MG TABLET (FP) PO SCH (09:18)
[2017-01-30] MEDS: CEFTRIAXONE 1 G/50 ML PREMIX 50 ML IVPB SCH (09:18)
[2017-01-30] MEDS: ACETAMINOPHEN 325 MG TABLET (FP) PO PRN (09:20)
[2017-01-30] MEDS: NICOTINE 21 MG/24 HOURS TOPICAL PATCH TD SCH (09:21)
--- NOTE | 2017-01-30 14:10 | PN ---
Progress Note, Physician History of Present Illness: doing well no issues afebrile says he is feeling much better now - Current Medication List Current Medications: Active Medications Acetaminophen (Tylenol -) 650 mg PO Q6H PRN PRN Reason: FEVER OR PAIN Last Admin: 01/30/17 09:20 Dose: 650 mg Meropenem 1 gm/ Dextrose 100 mls @ 100 mls/hr IVPB Q8H-IV SHRUTHI PRN Reason: Protocol Last Admin: 01/30/17 09:21 Dose: 100 mls/hr CEFTRIAXONE 1 G/50 ML PREMIX (Ceftriaxone 1 Gm-D5w Bag) 50 mls @ 100 mls/hr IVPB DAILY SHRUTHI Stop: 02/01/17 10:29 Last Admin: 01/30/17 09:18 Dose: 100 mls/hr Nicotine (Nicoderm Patch -) 14 mg TD DAILY SHRUTHI Ondansetron HCl (Zofran Injection) 4 mg IVPB Q6H PRN PRN Reason: NAUSEA Last Admin: 01/26/17 03:48 Dose: 4 mg Pantoprazole Sodium (Protonix -) 40 mg PO DAILY SHRUTHI Last Admin: 01/30/17 09:18 Dose: 40 mg Zolpidem Tartrate (Ambien -) 5 mg PO HS PRN Last Admin: 01/29/17 21:36 Dose: 5 mg - Objective Vital Signs: Vital Signs Temperature 97.7 F 01/30/17 14:04 Pulse Rate 56 L 01/30/17 14:04 Respiratory Rate 16 01/30/17 06:00 Blood Pressure 129/77 01/30/17 14:04 O2 Sat by Pulse Oximetry (%) 94 L 01/30/17 09:00 Constitutional: Yes: No Distress, Calm Cardiovascular: Yes: Regular Rate and Rhythm Respiratory: Yes: Regular, CTA Bilaterally Gastrointestinal: Yes: Normal Bowel Sounds, Soft Musculoskeletal: Yes: WNL Extremities: Yes: WNL Neurological: Yes: Alert, Oriented Psychiatric: Yes: Alert, Oriented Labs: CBC, BMP 01/30/17 06:58 01/30/17 06:58 INR, PTT INR 1.12 (0.82-1.09) 01/25/17 16:00 Assessment/Plan patient in sepsis sepsis hypotension bacteremia gm negative nausea r/o prostatic abscess/collection leukocytosis plan continue meropenam tomorrow can switch to levaquin 750mg daily for another 9 days
--- NOTE | 2017-01-30 15:06 | PN ---
Progress Note, Physician Chief Complaint: Mr Rubio says he is feeling well. Denies cp, sob, n/v. - Current Medication List Current Medications: Active Medications Acetaminophen (Tylenol -) 650 mg PO Q6H PRN PRN Reason: FEVER OR PAIN Last Admin: 01/30/17 09:20 Dose: 650 mg Meropenem 1 gm/ Dextrose 100 mls @ 100 mls/hr IVPB Q8H-IV SHRUTHI PRN Reason: Protocol Last Admin: 01/30/17 09:21 Dose: 100 mls/hr CEFTRIAXONE 1 G/50 ML PREMIX (Ceftriaxone 1 Gm-D5w Bag) 50 mls @ 100 mls/hr IVPB DAILY SHRUTHI Stop: 02/01/17 10:29 Last Admin: 01/30/17 09:18 Dose: 100 mls/hr Nicotine (Nicoderm Patch -) 14 mg TD DAILY SHRUTHI Ondansetron HCl (Zofran Injection) 4 mg IVPB Q6H PRN PRN Reason: NAUSEA Last Admin: 01/26/17 03:48 Dose: 4 mg Pantoprazole Sodium (Protonix -) 40 mg PO DAILY SHRUTHI Last Admin: 01/30/17 09:18 Dose: 40 mg Zolpidem Tartrate (Ambien -) 5 mg PO HS PRN Last Admin: 01/29/17 21:36 Dose: 5 mg - Objective Vital Signs: Vital Signs Temperature 36.5 C 01/30/17 14:04 Pulse Rate 56 L 01/30/17 14:04 Respiratory Rate 16 01/30/17 06:00 Blood Pressure 129/77 01/30/17 14:04 O2 Sat by Pulse Oximetry (%) 94 L 01/30/17 09:00 Constitutional: Yes: Well Nourished, No Distress, Calm Cardiovascular: Yes: Regular Rate and Rhythm. No: Gallop, Murmur, Rub Respiratory: Yes: Regular, CTA Bilaterally. No: Rales, Rhonchi, Wheezes Gastrointestinal: Yes: Normal Bowel Sounds, Soft. No: Distention, Tenderness Extremities: Yes: WNL Edema: No Labs: CBC, BMP 01/30/17 06:58 01/30/17 06:58 INR, PTT INR 1.12 (0.82-1.09) 01/25/17 16:00 Problem List - Problems (1) Prostatitis, acute Code(s): N41.0 - ACUTE PROSTATITIS (2) Sepsis Code(s): A41.9 - SEPSIS, UNSPECIFIED ORGANISM Qualifiers: Sepsis type: Escherichia coli Qualified Code(s): A41.51 - Sepsis due to Escherichia coli [E. coli]; A41.51 - Sepsis due to Escherichia coli [E. coli]; A41.51 - Sepsis due to Escherichia coli [E. coli] (3) JAMEEL (acute kidney injury) Code(s): N17.9 - ACUTE KIDNEY FAILURE, UNSPECIFIED Assessment/Plan (1) Prostatitis, acute Assessment/Plan: -improving -ID following and appreciate assistance -continue merrem and rocephin currently -plan to change to oral antibiotics tomorrow Code(s): N41.0 - ACUTE PROSTATITIS (2) Sepsis Assessment/Plan: -present on admission -resolved Code(s): A41.9 - SEPSIS, UNSPECIFIED ORGANISM Qualifiers: Sepsis type: Escherichia coli Qualified Code(s): A41.51 - Sepsis due to Escherichia coli [E. coli]; A41.51 - Sepsis due to Escherichia coli [E. coli]; A41.51 - Sepsis due to Escherichia coli [E. coli] (3) JAMEEL (acute kidney injury) Assessment/Plan: -resolved Code(s): N17.9 - ACUTE KIDNEY FAILURE, UNSPECIFIED
[2017-01-30] MEDS ORDERED: FLU VACCINE QUAD 60 MCG/0.5 ML (MDV 17-18) IM ONE (19:19)
[2017-01-30] MEDS: ZOLPIDEM TARTRATE 5 MG TABLET PO PRN (22:06)
[2017-01-31] MEDS ORDERED: PT OWN MED DRAWER 7, Y5N ONE ×2 (01:59→11:01)
[2017-01-31] MEDS: MEROPENEM 1 GM in DEXTROSE 5%-WATER - 100 ML IVPB SCH ×2 (02:32→11:02)
[2017-01-31 06:55] LABS: BASOPHIL 0.7 % (0-2.0); EOSINOPHIL 5.6 % (0-4.5); MCH 31.1 pg (25.7-33.7); MEAN CELL VOLUME 91.4 fl (80-96); MEAN PLT VOLUME 8.5 fl (7.5-11.1); NEUTROPHILS 59.8 % (42.8-82.8); PLATELET COUNT 113 K/MM3 (134-434); RDW 13.3 % (11.9-15.9)
[2017-01-31 07:19] LABS: ANION GAP 6 (8-16); CALCIUM 8.2 mg/dL (8.5-10.1); CO2 28 mmol/L (21-32); GLUCOSE,RANDOM 93 mg/dL (74-106); MAGNESIUM 2.4 mg/dL (1.8-2.4); PHOSPHOROUS 2.7 mg/dL (2.5-4.9)
[2017-01-31 10:59] VITALS: TEMP 97.6
[2017-01-31] MEDS: PANTOPRAZOLE 40 MG TABLET (FP) PO SCH (11:02)
[2017-01-31] MEDS: NICOTINE 14 MG/24 HOURS TOPICAL PATCH TD SCH ×3 (11:03→12:57)
[2017-01-31] MEDS: CEFTRIAXONE 1 G/50 ML PREMIX 50 ML IVPB SCH (12:10)
--- NOTE | 2017-01-31 13:02 | DS ---
Physical Examination Vital Signs: Vital Signs Temperature 36.4 C 01/31/17 10:58 Pulse Rate 57 L 01/31/17 10:58 Respiratory Rate 20 01/31/17 10:58 Blood Pressure 137/68 01/31/17 10:58 O2 Sat by Pulse Oximetry (%) 96 01/30/17 21:00 Constitutional: Yes: Well Nourished, No Distress, Calm Cardiovascular: Yes: Regular Rate and Rhythm. No: Gallop, Murmur, Rub Respiratory: Yes: Regular, CTA Bilaterally. No: Rales, Rhonchi, Wheezes Gastrointestinal: Yes: Normal Bowel Sounds, Soft. No: Distention, Tenderness Extremities: Yes: WNL Edema: No Labs: CBC, BMP 01/31/17 06:40 01/31/17 06:40 Discharge Summary Reason For Visit: FEVER Current Active Problems JAMEEL (acute kidney injury) (Acute) Fever (Acute) Prostatitis, acute (Acute) Sepsis (Acute) Hospital Course: (1) Prostatitis, acute Code(s): N41.0 - ACUTE PROSTATITIS (2) Sepsis Code(s): A41.9 - SEPSIS, UNSPECIFIED ORGANISM Qualifiers: Sepsis type: Escherichia coli Qualified Code(s): A41.51 - Sepsis due to Escherichia coli [E. coli]; A41.51 - Sepsis due to Escherichia coli [E. coli]; A41.51 - Sepsis due to Escherichia coli [E. coli] (3) AJMEEL (acute kidney injury) Code(s): N17.9 - ACUTE KIDNEY FAILURE, UNSPECIFIED Mr Rubio is a pleasant 76 year old male who presented with sepsis secondary to prostatitis after biopsy. He was admitted to the hospital and seen by ID. He was started on meropenem. He improved significantly. One set of blood cultures comes back positive for e coli, sensitive to levofloxacin. He is currently stable for discharge home on oral levaquin. He should follow up with Dr Flores and Dr Salcedo. 31 minutes spent in preparation of this discharge Condition: Good - Instructions Diet, Activity, Other Instructions: resume previous diet and activity Referrals: Matt Salcedo MD [Primary Care Provider] - Jeovany Flores MD., MD [Staff Physician] - Rosie Kelley MD [Staff Physician] - Disposition: HOME - Home Medications Comprehensive Discharge Medication List: Ambulatory Orders Aspirin [ASA -] 81 mg PO DAILY 03/20/16 Lactobacillus Acidophilus [Acidophilus Lactobacillus] 1 each PO DAILY #14 capsule 01/31/17 Levofloxacin 750 mg PO DAILY #9 tablet 01/31/17
--- NOTE | 2017-01-31 13:22 | PN ---
Progress Note, Physician History of Present Illness: doing well no issues - Current Medication List Current Medications: Active Medications Acetaminophen (Tylenol -) 650 mg PO Q6H PRN PRN Reason: FEVER OR PAIN Last Admin: 01/30/17 09:20 Dose: 650 mg Meropenem 1 gm/ Dextrose 100 mls @ 100 mls/hr IVPB Q8H-IV SHRUTHI PRN Reason: Protocol Last Admin: 01/31/17 11:02 Dose: 100 mls/hr CEFTRIAXONE 1 G/50 ML PREMIX (Ceftriaxone 1 Gm-D5w Bag) 50 mls @ 100 mls/hr IVPB DAILY SHRUTHI Stop: 02/01/17 10:29 Last Admin: 01/31/17 12:10 Dose: 100 mls/hr Nicotine (Nicoderm Patch -) 14 mg TD DAILY SHRUTHI Last Admin: 01/31/17 12:57 Dose: 14 mg Ondansetron HCl (Zofran Injection) 4 mg IVPB Q6H PRN PRN Reason: NAUSEA Last Admin: 01/26/17 03:48 Dose: 4 mg Pantoprazole Sodium (Protonix -) 40 mg PO DAILY SHRUTHI Last Admin: 01/31/17 11:02 Dose: 40 mg Zolpidem Tartrate (Ambien -) 5 mg PO HS PRN Last Admin: 01/30/17 22:06 Dose: 5 mg - Objective Vital Signs: Vital Signs Temperature 97.6 F 01/31/17 10:58 Pulse Rate 57 L 01/31/17 10:58 Respiratory Rate 20 01/31/17 10:58 Blood Pressure 137/68 01/31/17 10:58 O2 Sat by Pulse Oximetry (%) 96 01/30/17 21:00 Constitutional: Yes: No Distress, Calm HENT: Yes: Atraumatic Cardiovascular: Yes: Regular Rate and Rhythm Respiratory: Yes: Regular, CTA Bilaterally Gastrointestinal: Yes: Normal Bowel Sounds, Soft Musculoskeletal: Yes: WNL Extremities: Yes: WNL Neurological: Yes: Alert, Oriented Psychiatric: Yes: Alert, Oriented Labs: CBC, BMP 01/31/17 06:40 01/31/17 06:40 INR, PTT INR 1.12 (0.82-1.09) 01/25/17 16:00 Assessment/Plan patient in sepsis sepsis hypotension bacteremia gm negative nausea r/o prostatic abscess/collection leukocytosis plan levaquin 750 mg for another 9 days
[2017-01-31 14:12] VITALS: BP 130/65; PULSE 64
== END 2017-01-31 15:35 | disposition home or self-care (01) | DRG 862 ==
LOC: JER 14:58 → SUPCPDRO 14:58 → JERBED 17:53 → J5S 19:53 → J7W 01-26 08:17 → J5S 01-26 08:52
PROVIDERS: ADMIT Internal Medicine Geriatric Medicine; ATTEND Internal Medicine
DX: T81.4XXA Infection following a procedure, initial encounter (principal); A41.51 Sepsis due to Escherichia coli [E. coli]; N17.9 Acute kidney failure, unspecified; N41.0 Acute prostatitis; Y92.018 Other place in single-family (private) house as the place of occurrence of the external cause; Y84.8 Other medical procedures as the cause of abnormal reaction of the patient, or of later complication, without mention of misadventure at the time of the procedure; I95.9 Hypotension, unspecified; R31.0 Gross hematuria; F17.210 Nicotine dependence, cigarettes, uncomplicated; R11.0 Nausea; N40.0 Benign prostatic hyperplasia without lower urinary tract symptoms
CPT/HCPCS: 36415; 76856-TC; 80048; 80053; 81003; 81015; 82553; 82803; 83605; 83735; 84100; 84484; 85025; 85610; 85730; 86850; 86900; 86901; 87040; 87086; 87186; 93005; 93010; 99284-25

== ENCOUNTER 2017-04-08 12:45 | Emergency (ER) | payer OTHER, BC ==
[2017-04-08 12:56] VITALS: BP 160/79; PULSE 63; TEMP 97.9; BMI 28.1
--- NOTE | 2017-04-08 14:33 | PDOC ---
History of Present Illness - General Chief Complaint: Blood Pressure Problem Stated Complaint: BLOOD PRESSURE PROBLEM Time Seen by Provider: 04/08/17 13:33 History Source: Patient Exam Limitations: No Limitations - History of Present Illness Timing/Duration: 24 hours Modifying Factors: worse with: cold therapy, eating, immobilization, medication , movement, rest, other Associated Symptoms: reports: headaches. denies: chest pain, cough, diaphoresis , fever/chills, loss of appetite, nausea/vomiting, shortness of breath, syncope Aspirin Received prior to arrival: Yes: provided at home Asa Contraindications(Core Measure): No: Allergy, Other, Active Blding w/i 24 hrs., Plavix, Receiving Warfarin Beta Leatha Contraindications(Core Measure): No: Not Prescribed, Allergy, Bradycardia (HR <60bpm), Advanced Heart Block, Pacemaker, Other Beta Leatha Given by EMS(Core Measure): No Beta Leatha Taken at Home(Core Measure): Yes Beta Leatha Not Indicated at this Time(Core Measure): No Past History - Past Medical History Allergies/Adverse Reactions: Allergies Allergy/AdvReac Type Severity Reaction Status Date / Time No Known Allergies Allergy Verified 04/08/17 12:52 Home Medications: Ambulatory Orders Metoprolol Succinate [Toprol Xl -] 25 mg PO DAILY 04/08/17 Anemia: No Cardiac Disorders: Yes (CATH WITHOUT STENTS) COPD: No Disorders: Yes (kidney stones) HTN: Yes Kidney Stones: Yes - Surgical History Abdominal Surgery: No Cardiac Surgery: Yes GI Surgery: Yes (Ingun\nal hernia repair) - Immunization History Immunization Up to Date: Yes - Suicide/Smoking/Psychosocial Hx Smoking Status: Yes Smoking History: Current every day smoker Number of Cigarettes Smoked Daily: 10 Information on smoking cessation initiated: Yes 'Breaking Loose' booklet given: 04/08/17 Hx Alcohol Use: No Drug/Substance Use Hx: No Substance Use Type: None Review of Systems - Review of Systems Comments:: 04/08/17 14:33 Pt is a pleasant 76 y/o gentleman with PMH kidney stones s/p ureteral stent placement with prostate biopsy complicated by E. coli UTI and sepsis (Jan 2017) who presented to ED with complaint of HTN, blurry vision, and headache. Pt was diagnosed with HTN at PCPs office after readings of 150-160 on 2 separate visits. He was started on Metoprolol 25mg HS 4 days ago. Pt went to measure his BP at [employer] last night (systolic 174) and again this morning (systolic 184). Pt called PCP but was unable to reach him and so came to the ED. On questioning, pt admits his blurry vision has been ongoing for weeks/months, as have his headaches. Pt did not have blurry vision or headache at the time of his high pressure reading. Currently pt is stable, asymptomatic, NAD, and afebrile. *Physical Exam - Vital Signs Last Vital Signs Temp Pulse Resp BP Pulse Ox 97.9 F 63 18 160/79 100 04/08/17 12:53 04/08/17 12:53 04/08/17 12:53 04/08/17 12:53 04/08/17 12:53 - Physical Exam General Appearance: Yes: Nourished. No: Apparent Distress HEENT: positive: EOMI, RENITA, Normal ENT Inspection, Normal Voice, Symmetrical, Pharynx Normal. negative: Pharyngeal Erythema Neck: positive: Trachea midline, Normal Thyroid, Supple. negative: Tender, Rigid, Carotid bruit, Decreased range of motion, Stridor Respiratory/Chest: positive: Lungs Clear, Normal Breath Sounds. negative: Chest Tender, Respiratory Distress, Accessory Muscle Use Cardiovascular: positive: Regular Rate, S1, S2, Other (likely PACs vs PVCs). negative: Edema, JVD, Murmur Vascular Pulses: Dorsalis-Pedis (R): 2+, Doralis-Pedis (L): 2+ Gastrointestinal/Abdominal: positive: Normal Bowel Sounds, Soft. negative: Tender, Organomegaly, Pulsatile Mass Musculoskeletal: positive: Normal Inspection. negative: CVA Tenderness Extremity: positive: Normal Capillary Refill, Normal Inspection, Normal Range of Motion, Pelvis Stable. 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 negative: Facial Droop, Sensory Deficit, Confused, Disoriented *DC/Admit/Observation/Transfer Diagnosis at time of Disposition: Essential hypertension - Discharge Dispostion Disposition: HOME Condition at time of disposition: Stable Admit: No - Referrals Referrals: Matt Salcedo MD [Primary Care Provider] - - Patient Instructions Printed Discharge Instructions: How to Monitor Your Blood Pressure at Home Additional Instructions: Please follow up with your primary medical doctor in 2-3 days and take your prescribed medications as directed. Please return to the ED if you develop headache, chest pain, shortness of breath , blood in the urine. Please return to the ED if your symptoms recur or get worse. - Post Discharge Activity
--- NOTE | 2017-04-08 14:41 | PDOC ---
Attending Attestation - Resident Resident Name: Chi Brunner - ED Attending Attestation I have performed the following: I have examined & evaluated the patient, The case was reviewed & discussed with the resident, I agree w/resident's findings & plan, Exceptions are as noted - HPI HPI: 04/08/17 14:36 76y/o M recently diagnosed HTN started on metoprolol 4d ago p/w elevated BP reading at a [employer] bp reading machine. Pt has no symptoms, routinely checked his BP this morning and noted 170 systolic so presents for evaluation. no chapman/vision change/speech change/n/v/focal weakness. no cp/sob. took his metoprolol last night. - Physicial Exam PE: 04/08/17 14:39 Blood pressure 160/79 today Well-appearing, seated in chair, smiling and alert Exam is normal without signs of end organ injury Lungs are clear, S1-S2 with regular rhythm and rate No edema Neurologically intact - Medical Decision Making 04/08/17 14:40 Patient seen and evaluated with the resident. I agree with the overall evaluation, assessment, and management with the following summary of visit: 76-year-old male with recently diagnosed hypertension presents with elevated blood pressure reading, otherwise asymptomatic without signs or symptoms of end organ injury. Reassured patient No indication for further workup or emergent intervention Has follow-up with Dr. Salcedo, understands strict return criteria
== END 2017-04-08 14:52 | disposition home or self-care (01) ==
LOC: JER 12:45
DX: I10 Essential (primary) hypertension (principal); Z98.61 Coronary angioplasty status; F17.210 Nicotine dependence, cigarettes, uncomplicated; Z87.442 Personal history of urinary calculi
CPT/HCPCS: 99281-25

== ENCOUNTER 2017-07-05 06:59 | Day surgery (SDC) | payer OTHER, BC ==
[2017-07-04 14:46] VITALS: BMI 26.6
[2017-07-05] MEDS ORDERED: LIDOCAINE HCL 2% (20ML MULTI-DOSE VIAL) NR ONE (07:42)
[2017-07-05] MEDS ORDERED: PROPOFOL 20 ML ONE ×2 (07:42)
[2017-07-05 10:04] VITALS: TEMP 97.5
[2017-07-05 11:46] VITALS: BP 134/72; PULSE 58
--- NOTE | 2017-07-08 10:02 | PATH ---
Surgical Pathology Report Patient Name: BASHIR TURNER [facility]. Rec. #: [id number] /Age/Gender: 1940 (Age: 76) / M Account: [id number] Location: ASU-ENDOSCOPY Taken: 07/05/2017 Received: 07/05/2017 Reported: 07/08/2017 Physicians: John Barillas M.D. Specimen(s) Received A: BX SIGMOID COLON POLYP B: BX MID TRANSVERSE COLON POLYP C: BX PROXIMAL TRANSVERSE D: BX RIGHT COLON POLYPS E: BX CECAL POLYP F: BX HEPATIC FLEXURE G: BX DESCENDING COLON POLYP H: BX RECTAL POLYP Clinical History Preoperative diagnosis: Polyp surveillance Postoperative diagnosis: Colon polyps, diverticulosis, hemorrhoids Final Diagnosis A. SIGMOID COLON, POLYPECTOMY: HYPERPLASTIC POLYP. B. MID TRANSVERSE COLON POLYPS, POLYPECTOMY: TUBULAR ADENOMA(S). C. PROXIMAL TRANSVERSE COLON, POLYPS, POLYPECTOMY: TUBULAR ADENOMA(S). D. COLON, RIGHT, POLYPS, POLYPECTOMY: TUBULAR ADENOMA. E. CECUM, POLYP, POLYPECTOMY: TUBULAR ADENOMA. F. COLON, HEPATIC FLEXURE, POLYPS, BIOPSY: TUBULAR ADENOMA(S). HYPERPLASTIC POLYP(S). G. DESCENDING COLON, POLYP, BIOPSY: TUBULAR ADENOMA. H. RECTUM, POLYP, BIOPSY: HYPERPLASTIC POLYP. Electronically Signed Nel Strauss M.D. Gross Description A. Received in formalin, labeled "biopsy sigmoid colon polyp" are 3 goddard, irregular portions of soft tissue ranging from 0.2-0.3 cm. in greatest dimension. The specimens are submitted in toto in one cassette. B. Received in formalin, labeled "mid transverse colon polyps" are 7 goddard, irregular to polypoid portions of soft tissue ranging from 0.2-0.8 cm. in greatest dimension. The specimens are submitted in toto in one cassette. C. Received in formalin labeled "biopsy proximal transverse colon polyp," is a 1.4 x 1.0 x 0.2 cm aggregate of multiple goddard, irregular to polypoid portions of soft tissue. The formalin is filtered and the specimen is entirely submitted in one cassette. D. Received in formalin, labeled "biopsy right colon polyp" are 2 goddard, irregular portions of soft tissue averaging 0.3 cm. in greatest dimension. The specimens are submitted in toto in one cassette. E. Received in formalin, labeled "biopsy cecal polyp" is a goddard, irregular portion of soft tissue measuring 0.4 cm. in greatest dimension. The specimen is submitted in toto in one cassette. F. Received in formalin labeled "hepatic flexure polyp," is a 0.8 x 0.7 x 0.2 cm aggregate of goddard soft tissue fragments. The formalin is filtered and the specimen is entirely submitted in one cassette. G. Received in formalin, labeled "biopsy descending colon polyp" are 3 goddard, irregular portions of soft tissue ranging from 0.1-0.2 cm. in greatest dimension. The specimens are submitted in toto in one cassette. H. Received in formalin, labeled "biopsy rectal polyp" are 3 goddard, irregular portions of soft tissue ranging from 0.1-0.3 cm. in greatest dimension. The specimens are submitted in toto in one cassette. 07/05/2017 saudi07/05/2017
== END 2017-07-05 10:50 | disposition home or self-care (01) ==
LOC: JASU-ENDO 06:59
PROVIDERS: ATTEND Internal Medicine Gastroenterology
PROC: 0DBH8ZX Excision of Cecum, Via Natural or Artificial Opening Endoscopic, Diagnostic (ICD-10-PCS; 2017-07-05)
PROC: 0DBN8ZX Excision of Sigmoid Colon, Via Natural or Artificial Opening Endoscopic, Diagnostic (ICD-10-PCS; 2017-07-05)
PROC: 0DBP8ZX Excision of Rectum, Via Natural or Artificial Opening Endoscopic, Diagnostic (ICD-10-PCS; 2017-07-05)
PROC: 0DBF8ZX Excision of Right Large Intestine, Via Natural or Artificial Opening Endoscopic, Diagnostic (ICD-10-PCS; 2017-07-05)
PROC: 0DBM8ZX Excision of Descending Colon, Via Natural or Artificial Opening Endoscopic, Diagnostic (ICD-10-PCS; 2017-07-05)
PROC: 0DBL8ZX Excision of Transverse Colon, Via Natural or Artificial Opening Endoscopic, Diagnostic (ICD-10-PCS; principal; 2017-07-05 08:30)
DX: Z12.11 Encounter for screening for malignant neoplasm of colon (principal); Z86.010 Personal history of colon polyps; D12.0 Benign neoplasm of cecum; D12.4 Benign neoplasm of descending colon; D12.5 Benign neoplasm of sigmoid colon; D12.3 Benign neoplasm of transverse colon; K62.1 Rectal polyp; K64.8 Other hemorrhoids; K57.30 Diverticulosis of large intestine without perforation or abscess without bleeding
CPT/HCPCS: 88305-TC

== ENCOUNTER 2018-09-12 10:19 | Day surgery (SDC) | payer OTHER, BC | END 2018-09-12 13:54 | disposition home or self-care (01) | LOC: JASU-ENDO 10:19 ==

== ENCOUNTER 2019-12-06 11:27 | Emergency (ER) | payer OTHER, BC ==
[2019-12-06 11:39] VITALS: TEMP 98; BMI 26.2
[2019-12-06] MEDS ORDERED: IBUPROFEN 600 MG TABLET (FP) PO ONE ×2 (12:38→12:48)
[2019-12-06] MEDS ORDERED: ACETAMINOPHEN 325 MG TABLET (FP) PO ONE (12:38)
[2019-12-06] MEDS ORDERED: ACETAMINOPHEN 325 MG TABLET (FP) ONE (12:48)
[2019-12-06] MEDS ORDERED: LACTATED RINGERS SOLUTION 1000 ML INFUS.BAG IV ONE (12:57)
[2019-12-06 13:42] LABS: BASO % 0.6 % (0-2.0); EOS % 2.4 % (0-4.5); HEMATOCRIT 38.2 % (35.4-49); HEMOGLOBIN 12.8 GM/dL (11.7-16.9); LYMPH % 16.2 % (8-40); MCH 31.4 pg (25.7-33.7); MCHC 33.6 g/dl (32.0-35.9); MEAN CELL VOLUME 93.5 fl (80-96); MEAN PLT VOLUME 8.5 fl (7.5-11.1); MONO % 6.6 % (3.8-10.2); NEUT % 74.2 % (42.8-82.8); PLATELET COUNT 159 K/MM3 (134-434); RBC 4.08 M/mm3 (4.00-5.60); RDW 13.5 % (11.9-15.9); WHITE BLOOD COUNT 10.3 K/mm3 (4.0-10.0)
[2019-12-06 14:14] LABS: ALBUMIN 3.8 g/dl (3.4-5.0); BILIRUBIN,TOTAL 0.4 mg/dL (0.2-1); BLOOD UREA NITROGEN 29.2 mg/dL (7-18); CREATININE 1.4 mg/dL (0.55-1.3); POTASSIUM 4.9 mmol/L (3.5-5.1)
--- NOTE | 2019-12-06 14:47 | PDOC ---
History of Present Illness - General Chief Complaint: Weakness Stated Complaint: BODY PAIN/BACK/LEG Time Seen by Provider: 12/06/19 11:58 History Source: Patient Exam Limitations: No Limitations - History of Present Illness Initial Comments: 12/06/19 14:33 79yo M with PMH HTN, HLD, prostate cancer 2 years prior s/p radiation reported last PSA normal within the past few months presents with many complaints, chiefly back and left arm and leg pain. Patient states he has had this pain for several months, possibly soon after starting statin. Descibes it as dull throbbing pain/pressure. Temporary relief with tylenol. Wakes up in the morning with it and it is difficult to get out of bed. Also incidentally reports 2 minutes of chest pressure last night. Substernal, not exertional or relieved by rest. Not worse with deep breathing or position. Lost 8 pounds in the past year. Denies saddle anesthesia, incontinence/retention, fever/chills. PMH/PSH: as above Meds: amlodipine, metoprolol, rosuvastatin Allergies Allergy/AdvReac Type Severity Reaction Status Date / Time No Known Allergies Allergy Verified 12/06/19 11:37 Denies alc/tob/drugs ROS GENERAL/CONSTITUTIONAL: No fever or chills. HEAD, EYES, EARS, NOSE AND THROAT: No change in vision. No ear pain or discharge. No sore throat. CARDIOVASCULAR: No chest pain or shortness of breath RESPIRATORY: No cough, wheezing, or hemoptysis. GASTROINTESTINAL: +chronic nausea, no vomiting, diarrhea or constipation. GENITOURINARY: No dysuria, frequency, or change in urination. MUSCULOSKELETAL: back, left arm/leg pain SKIN: No rash NEUROLOGIC: No headache, vertigo, loss of consciousness, or change in strength/sensation. ENDOCRINE: No increased thirst. No abnormal weight change HEMATOLOGIC/LYMPHATIC: No anemia, easy bleeding, or history of blood clots. ALLERGIC/IMMUNOLOGIC: No hives or skin allergy. PE GENERAL: Awake, alert, and fully oriented, in no acute distress HEAD: No signs of trauma, normocephalic, atraumatic EYES: PERRLA, EOMI, sclera anicteric, conjunctiva clear ENT: Auricles normal inspection, hearing grossly normal, nares patent, oropharynx clear without exudates. Moist mucosa NECK: Normal ROM, supple, no lymphadenopathy, JVD, or masses LUNGS: No distress, speaks full sentences, clear to auscultation bilaterally HEART: Regular rate and rhythm, normal S1 and S2, no murmurs, rubs or gallops, peripheral pulses normal and equal bilaterally. ABDOMEN: Soft, nontender, normoactive bowel sounds. No guarding, no rebound. No masses EXTREMITIES : Normal inspection, Normal range of motion, no edema. No clubbing or cyanosis. NEUROLOGICAL: Cranial nerves II through XII grossly intact. Normal speech, normal gait, no focal sensorimotor deficits SKIN: Warm, Dry, normal turgor, no rashes or lesions noted Back: no midline or paraspinal tenderness. straight leg negative Vital Signs Temp Pulse Resp BP Pulse Ox 98 F 60 18 116/60 96 12/06/19 11:35 12/06/19 11:35 12/06/19 11:35 12/06/19 11:35 12/06/19 11:35 MDM: 79yo M with PMH HTN, HLD, prostate cancer 2 years prior s/p radiation reported last PSA normal within the past few months presents with many complaints, chiefly back and left arm and leg pain. No red flag symptoms or findings. L aftab diagnosis is statin induced myalgias. Less likely spinal lesions given recent reported negative PSA. -CBC, CMP, lipids -tylenol, ibuprofen -lumbar spine x-ray 12/06/19 15:41 labwork notable for elevated triglycerides. lumbar x-ray negative for acute pathology, but some chronic changes Leading differential is statin induced myalgias vs [facility] pathology DC home with f/u and return precautions. Patient agrees to plan Past History - Medical History Allergies/Adverse Reactions: Allergies Allergy/AdvReac Type Severity Reaction Status Date / Time No Known Allergies Allergy Verified 12/06/19 11:37 Home Medications: Ambulatory Orders Metoprolol Succinate [Toprol XL -] 50 mg PO DAILY 04/08/17 Amlodipine Besylate [Norvasc -] 10 mg PO DAILY 07/04/17 Aspirin Coated [Ecotrin -] 325 mg PO DAILY 07/04/17 Rosuvastatin [Crestor -] 5 mg PO HS 12/06/19 Anemia: No Asthma: No Cancer: Yes (PROSTATE) Cardiac Disorders: No CVA: No COPD: No CHF: No Dementia: No Diabetes: No GI Disorders: Yes (COLON POLYPS/ADENOMAS) Disorders: Yes (PROSTATE CANCER) HTN: Yes Hypercholesterolemia: No Kidney Stones: Yes Liver Disease: No Seizures: No Thyroid Disease: No - Surgical History Abdominal Surgery: No Appendectomy: No Cardiac Surgery: Yes (CARDIAC CATHETERIZATION) Cholecystectomy: No GI Surgery: Yes (Ingun\nal hernia repair) Lung Surgery: No Neurologic Surgery: No Orthopedic Surgery: No - Immunization History Immunization Up to Date: Yes - Psycho-Social/Smoking History Smoking Status: Yes Smoking History: Former smoker Have you smoked in the past 12 months: No Number of Cigarettes Smoked Daily: 10 Information on smoking cessation initiated: No 'Breaking Loose' booklet given: 04/08/17 - Substance Abuse Hx (Audit-C & DAST Scrn) How often the patient has a drink containing alcohol: Never Score: In Men: 4 or > Positive; In Women: 3 or > Positive: 0 Screen Result (Pos requires Nsg. Audit-10AR): Negative *Physical Exam - Vital Signs Last Vital Signs Temp Pulse Resp BP Pulse Ox 98 F 60 18 116/60 96 12/06/19 11:35 12/06/19 11:35 12/06/19 11:35 12/06/19 11:35 12/06/19 11:35 ED Treatment Course - LABORATORY CBC & Chemistry Diagram: 12/06/19 13:00 12/06/19 13:00 - ADDITIONAL ORDERS Additional order review: Laboratory Results 12/06/19 13:00 Sodium 143 Potassium 4.9 Chloride 109 H Carbon Dioxide 29 Anion Gap 5 L BUN 29.2 H Creatinine 1.4 H Est GFR (CKD-EPI)AfAm 55.38 Est GFR (CKD-EPI)NonAf 47.78 Random Glucose 84 Calcium 9.0 Total Bilirubin 0.4 AST 19 ALT 22 Alkaline Phosphatase 59 Creatine Kinase 93 Total Protein 7.0 Albumin 3.8 Triglycerides 206 H Cholesterol 159 Total LDL Cholesterol 85 HDL Cholesterol 48 12/06/19 13:00 RBC 4.08 MCV 93.5 MCHC 33.6 RDW 13.5 MPV 8.5 Neutrophils % 74.2 D Lymphocytes % 16.2 D Monocytes % 6.6 Eosinophils % 2.4 Basophils % 0.6 - Medications Given in the ED: ED Medications Discontinued Medications Generic Name Dose Route Start Last Admin Trade Name Freq PRN Reason Stop Dose Admin Acetaminophen 975 mg 12/06/19 12:38 12/06/19 12:45 Tylenol - PO 12/06/19 12:39 975 mg ONCE ONE Administration Ibuprofen 600 mg 12/06/19 12:38 12/06/19 12:45 Motrin - PO 12/06/19 12:39 600 mg ONCE ONE Administration Lactated Ringer's 1,000 ml 12/06/19 12:57 12/06/19 13:10 Lactated Ringers Solution IV 12/06/19 12:58 1,000 ml ONCE ONE Administration Discharge - Discharge Information Problems reviewed: Yes Clinical Impression/Diagnosis: Arm pain, left, Leg pain, left Back pain Qualifiers: Back pain location: low back pain Chronicity: chronic Back pain laterality: bilateral Sciatica presence: without sciatica Qualified Code(s): M54.5 - Low back pain Condition: Stable Disposition: HOME - Admission No - Follow up/Referral Referrals: Matt Salcedo MD [Primary Care Provider] - - Patient Discharge Instructions Additional Instructions: You were seen in the ER for low back pain and left arm and leg pain. We did an x-ray of your back which did not show an acute problem, but did show arthritis. Your lab work showed high triglycerides and normal cholesterol. We do not have a clear reason for your pain. It could be a side effect of your cholesterol medication. 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 Please advance your appointment with Dr. Flores to follow up on your back pain. While your x-ray was normal, you may need a CT scan or MRI to rule out recurrence of your cancer. Please return if you experience any new, worsening, or concerning symptoms We hope you feel better soon! - Post Discharge Activity
[2019-12-06 15:32] VITALS: BP 137/73; PULSE 50
--- NOTE | 2019-12-06 16:14 | PDOC ---
Documentation entered by Mary Xiong SCRIBE, acting as scribe for Linda Garza MD. Linda Garza MD: This documentation has been prepared by the Tyrese barrios Ana, SCRIBE, under my direction and personally reviewed by me in its entirety. I confirm that the documentation accurately reflects all work, treatment, procedures, and medical decision making performed by me. Attending Attestation - Resident Resident Name: Leonardo Kramer - ED Attending Attestation I have performed the following: I have examined & evaluated the patient, The case was reviewed & discussed with the resident, I agree w/resident's findings & plan, Exceptions are as noted - HPI HPI: 12/06/19 11:59 Patient is a 79 year old male with a significant past medical history of hypertension, HLD, and prostate cancer 2 years prior s/p radiation, who presents to the ED with pain in lower back, b/l arm, and leg x several months. Patient describes pain as a "throbbing pressure and pain" that can be relieved with Tylenol. Reported chest pressure to Dr. Kramer but denies recent chest pain or pressure during my interview. Denies SOB. Patient denies: fever, chills, saddle anesthesia, incontinence/retention, or any other related symptoms. Allergies: NKDA Discharge - Discharge Information Clinical Impression/Diagnosis: Back pain, Arm pain, left, Leg pain, left Condition: Stable Disposition: HOME - Follow up/Referral Referrals: Matt Salcedo MD [Primary Care Provider] - - Patient Discharge Instructions Additional Instructions: You were seen in the ER for low back pain and left arm and leg pain. We did an x-ray of your back which did not show an acute problem, but did show arthritis. Your lab work showed high triglycerides and normal cholesterol. We do not have a clear reason for your pain. It could be a side effect of your cholesterol medication. 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 Please advance your appointment with Dr. Flores to follow up on your back pain. While your x-ray was normal, you may need a CT scan or MRI to rule out recurrence of your cancer. Please return if you experience any new, worsening, or concerning symptoms We hope you feel better soon! - Post Discharge Activity
== END 2019-12-06 16:20 | disposition home or self-care (01) ==
LOC: JER 11:27
DX: M54.5 Low back pain (principal); M79.602 Pain in left arm; M79.605 Pain in left leg
CPT/HCPCS: 36415; 72100-TC-FY; 80053; 80061; 82550; 83721; 85025; 99284-25

== ENCOUNTER 2020-04-16 13:14 | Emergency (ER) | payer OTHER, BC ==
[2020-04-16 13:24] VITALS: BP 120/63; PULSE 51; TEMP 98.5; BMI 25.0
[2020-04-16] MEDS ORDERED: ACETAMINOPHEN 325 MG TABLET (FP) PO ONE (16:10)
[2020-04-16] MEDS ORDERED: ACETAMINOPHEN 325 MG TABLET (FP) ONE (16:27)
[2020-04-16 16:57] LABS: CHLORIDE 108 mmol/L (98-107); POTASSIUM 4.4 mmol/L (3.5-5.1); SODIUM 142 mmol/L (136-145)
[2020-04-16 16:58] LABS: CALCIUM 8.8 mg/dL (8.5-10.1)
[2020-04-16 16:59] LABS: ALBUMIN 3.9 g/dl (3.4-5.0); ANION GAP 4 MMOL/L (8-16); BLOOD UREA NITROGEN 32.5 mg/dL (7-18); CO2 29 mmol/L (21-32); GLUCOSE,RANDOM 80 mg/dL (74-106)
[2020-04-16 17:03] LABS: BILIRUBIN,TOTAL 0.2 mg/dL (0.2-1); CREATININE 1.4 mg/dL (0.55-1.3); SGOT/AST 19 U/L (15-37); SGPT/ALT 20 U/L (13-61)
[2020-04-16 17:05] LABS: ALK PHOS 55 U/L (45-117); TOT PROT 6.8 g/dl (6.4-8.2)
== END 2020-04-16 18:30 | disposition left against medical advice (07) ==
LOC: JER 13:14
DX: R07.9 Chest pain, unspecified (principal); M79.602 Pain in left arm
CPT/HCPCS: 36415; 71045-TC-FY; 72125-TC; 80053; 82550; 84484; 93005; 93010; 99285-25

== ENCOUNTER 2020-06-08 04:35 | Day surgery (SDC) | payer OTHER, BC ==
[2020-06-07 12:08] VITALS: BMI 24.4
[2020-06-08 11:06] VITALS: TEMP 97.7
[2020-06-08 12:04] VITALS: BP 145/55; PULSE 47
== END 2020-06-08 12:07 | disposition home or self-care (01) ==
LOC: JASU-ENDO 04:35
PROVIDERS: ATTEND Internal Medicine Gastroenterology
PROC: 0DB78ZX Excision of Stomach, Pylorus, Via Natural or Artificial Opening Endoscopic, Diagnostic (ICD-10-PCS; 2020-06-08)
PROC: 0DB38ZX Excision of Lower Esophagus, Via Natural or Artificial Opening Endoscopic, Diagnostic (ICD-10-PCS; 2020-06-08)
PROC: 0DB98ZX Excision of Duodenum, Via Natural or Artificial Opening Endoscopic, Diagnostic (ICD-10-PCS; 2020-06-08)
PROC: 0DB78ZX Excision of Stomach, Pylorus, Via Natural or Artificial Opening Endoscopic, Diagnostic (ICD-10-PCS; 2020-06-08)
PROC: 0DB98ZX Excision of Duodenum, Via Natural or Artificial Opening Endoscopic, Diagnostic (ICD-10-PCS; principal; 2020-06-08 10:37)
DX: D13.1 Benign neoplasm of stomach (principal); D13.2 Benign neoplasm of duodenum; K21.00 Gastro-esophageal reflux disease with esophagitis, without bleeding; K29.80 Duodenitis without bleeding; K29.40 Chronic atrophic gastritis without bleeding
CPT/HCPCS: 88305-TC; 88342-TC

== ENCOUNTER 2021-01-13 12:03 | Emergency (ER) | payer OTHER, BC ==
[2021-01-13 12:28] VITALS: BP 109/60; PULSE 50; TEMP 97.9; BMI 25.8
[2021-01-13] MEDS ORDERED: ACETAMINOPHEN 1000 MG/100 ML VIAL (NON FORMULARY) IVPB ONE (13:12)
[2021-01-13] MEDS ORDERED: ONDANSETRON 4 MG/2 ML VIAL IVPUSH ONE (13:12)
[2021-01-13] MEDS ORDERED: SODIUM CHLORIDE 1,000 ML IV STA (13:12)
[2021-01-13] MEDS ORDERED: ACETAMINOPHEN INJECTION 100 ML IVPB ONE (13:37)
[2021-01-13] MEDS ORDERED: ONDANSETRON 4 MG/2 ML VIAL ONE (13:37)
[2021-01-13 13:49] LABS: BASO % 0.7 % (0-2.0); EOS % 2.6 % (0-4.5); HEMATOCRIT 39.3 % (35.4-49); HEMOGLOBIN 13.4 GM/dL (11.7-16.9); LYMPH % 16.1 % (8-40); MCH 31.8 pg (25.7-33.7); MCHC 34.2 g/dl (32.0-35.9); MEAN PLT VOLUME 7.9 fl (7.5-11.1); MONO % 6.8 % (3.8-10.2); NEUT % 73.8 % (42.8-82.8); PLATELET COUNT 173 10^3/uL (134-434); RBC 4.22 M/mm3 (4.00-5.60); WHITE BLOOD COUNT 10.2 K/mm3 (4.0-10.0)
[2021-01-13 13:56] LABS: INR 0.94 (0.83-1.09); PROTHROMBIN TIME (PATIENT) 11.5 SEC (9.7-13.0)
[2021-01-13 14:05] LABS: EPI CELLS 3 /uL (0-25.1); HYALINE CASTS 1 /uL (0-3.1); PH,URINE 5.5 (5.0-8.0); URINE APPEARANCE CLEAR; URINE BACTERIA 6 /uL (0-1359); URINE BILIRUBIN NEGATIVE (NEGATIVE); URINE COLOR DK YELLOW; URINE GLUCOSE (UA) NEGATIVE (NEGATIVE); URINE KETONE TRACE (NEGATIVE); URINE LEUK ESTERASE NEGATIVE (NEGATIVE); URINE NITRITE NEGATIVE (NEGATIVE); URINE PROTEIN 1+ (NEGATIVE); URINE RBC 10 /uL (0-23.9); URINE WBC 6 /uL (0-25.8)
[2021-01-13 14:09] LABS: CALCIUM 8.8 mg/dL (8.5-10.1)
[2021-01-13 14:10] LABS: BLOOD UREA NITROGEN 25.5 mg/dL (7-18)
[2021-01-13 14:13] LABS: CREATININE 1.3 mg/dL (0.55-1.3)
[2021-01-13 14:14] LABS: BILIRUBIN,TOTAL 1.2 mg/dL (0.2-1); TOT PROT 7.5 g/dl (6.4-8.2)
== END 2021-01-13 15:19 | disposition home or self-care (01) ==
LOC: JER 12:03
PROC: 3E0333Z Introduction of Anti-inflammatory into Peripheral Vein, Percutaneous Approach (ICD-10-PCS; principal; 2021-01-13)
PROC: 3E033GC Introduction of Other Therapeutic Substance into Peripheral Vein, Percutaneous Approach (ICD-10-PCS; 2021-01-13)
PROC: 3E0337Z Introduction of Electrolytic and Water Balance Substance into Peripheral Vein, Percutaneous Approach (ICD-10-PCS; 2021-01-13)
DX: R10.84 Generalized abdominal pain (principal)
CPT/HCPCS: 36415; 80053; 81003; 83605; 83690; 85025; 85610; 87086; 93005; 93010; 99284-25; J0131

== ENCOUNTER 2022-04-13 04:36 | Day surgery (SDC) | payer OTHER, BC ==
[2022-04-12 15:00] VITALS: BMI 25.0
[2022-04-13 11:39] VITALS: TEMP 97.5
[2022-04-13 12:02] VITALS: RESP 18
[2022-04-13 12:26] VITALS: BP 106/46; PULSE 68
== END 2022-04-13 12:40 | disposition home or self-care (01) ==
LOC: JASU-ENDO 04:36
PROVIDERS: ATTEND Internal Medicine Gastroenterology
PROC: 0D5L8ZZ Destruction of Transverse Colon, Via Natural or Artificial Opening Endoscopic (ICD-10-PCS; principal; 2022-04-13 11:00)
DX: Z12.11 Encounter for screening for malignant neoplasm of colon (principal); Z86.010 Personal history of colon polyps; D12.3 Benign neoplasm of transverse colon; K57.30 Diverticulosis of large intestine without perforation or abscess without bleeding; K64.8 Other hemorrhoids
CPT/HCPCS: 88305-TC

== ENCOUNTER 2022-08-30 17:34 | Observation (INO) | payer OTHER, BC ==
[2022-08-30] MEDS ORDERED: DIPHTH,PERTUSS(ACELL),TET 0.5 ML DISP.SYRIN IM ONE ×2 (18:11→18:31)
[2022-08-30 18:37] LABS: BASO % 0.4 % (0-2.0); EOS % 2.7 % (0-4.5); HEMATOCRIT 35.3 % (35.4-49); HEMOGLOBIN 12.2 GM/dL (11.7-16.9); LYMPH % 18.1 % (8-40); MCH 32.8 pg (25.7-33.7); MCHC 34.6 g/dl (32.0-35.9); MEAN CELL VOLUME 94.8 fl (80-96); MONO % 7.6 % (3.8-10.2); NEUT % 71.2 % (42.8-82.8); PLATELET COUNT 169 10^3/uL (134-434); RBC 3.72 M/mm3 (4.00-5.60); RDW 14.4 % (11.9-15.9); WHITE BLOOD COUNT 10.9 K/mm3 (4.0-10.0)
[2022-08-30 19:20] LABS: POTASSIUM 4.4 mmol/L (3.5-5.1)
[2022-08-30 19:22] LABS: ALBUMIN 3.4 g/dl (3.4-5.0); CALCIUM 8.8 mg/dL (8.5-10.1); MAGNESIUM 2.2 mg/dL (1.8-2.4)
[2022-08-30 19:25] LABS: CREATININE 1.7 mg/dL (0.55-1.3)
[2022-08-30 19:27] LABS: BILIRUBIN,TOTAL 0.2 mg/dL (0.2-1); TOT PROT 6.1 g/dl (6.4-8.2)
[2022-08-30] MEDS ORDERED: SODIUM CHLORIDE 0.9% 500 ML INFUS.BAG IV ONE (19:38)
[2022-08-30 20:01] LABS: PH,URINE 5.5 (5.0-8.0); URINE APPEARANCE CLEAR; URINE BILIRUBIN NEGATIVE (NEGATIVE); URINE COLOR YELLOW; URINE GLUCOSE (UA) NEGATIVE (NEGATIVE); URINE KETONE NEGATIVE (NEGATIVE); URINE LEUK ESTERASE NEGATIVE (NEGATIVE); URINE NITRITE NEGATIVE (NEGATIVE); URINE PROTEIN TRACE (NEGATIVE); URINE UROBILINOGEN 0.2 mg/dL (0.2-1.0)
[2022-08-30] MEDS ORDERED: SODIUM CHLORIDE 1,000 ML IV SCH (22:45)
[2022-08-31 00:29] LABS: HEMATOCRIT 36.1 % (35.4-49); HEMOGLOBIN 12.5 GM/dL (11.7-16.9); MCHC 34.5 g/dl (32.0-35.9); MEAN CELL VOLUME 95.6 fl (80-96); MEAN PLT VOLUME 7.9 fl (7.5-11.1); PLATELET COUNT 166 10^3/uL (134-434); RBC 3.77 M/mm3 (4.00-5.60); RDW 14.7 % (11.9-15.9); WHITE BLOOD COUNT 10.5 K/mm3 (4.0-10.0)
[2022-08-31 03:01] VITALS: BMI 24.5
[2022-08-31] MEDS: HEPARIN NA (PORCINE) 5,000 UNITS/ML 1ML VIAL SQ SCH ×2 (06:05→15:44)
[2022-08-31 07:25] LABS: BASO % 0.6 % (0-2.0); EOS % 2.5 % (0-4.5); HEMATOCRIT 35.6 % (35.4-49); HEMOGLOBIN 12.5 GM/dL (11.7-16.9); LYMPH % 15.2 % (8-40); MCH 33.3 pg (25.7-33.7); MCHC 35.2 g/dl (32.0-35.9); MEAN CELL VOLUME 94.6 fl (80-96); MEAN PLT VOLUME 8.9 fl (7.5-11.1); MONO % 7.7 % (3.8-10.2); PLATELET COUNT 159 10^3/uL (134-434); RBC 3.76 M/mm3 (4.00-5.60); RDW 14.2 % (11.9-15.9); WHITE BLOOD COUNT 9.6 K/mm3 (4.0-10.0)
[2022-08-31 07:35] LABS: POTASSIUM 4.4 mmol/L (3.5-5.1)
[2022-08-31 07:37] LABS: CALCIUM 8.6 mg/dL (8.5-10.1)
[2022-08-31 07:38] LABS: ALBUMIN 3.4 g/dl (3.4-5.0); BLOOD UREA NITROGEN 29.8 mg/dL (7-18); MAGNESIUM 1.9 mg/dL (1.8-2.4)
[2022-08-31 07:41] LABS: CREATININE 1.3 mg/dL (0.55-1.3); PHOSPHOROUS 2.5 mg/dL (2.5-4.9)
[2022-08-31 07:42] LABS: BILIRUBIN,TOTAL 0.6 mg/dL (0.2-1); TOT PROT 6.1 g/dl (6.4-8.2)
[2022-08-31] MEDS ORDERED: NICOTINE 21 MG/24 HOURS TOPICAL PATCH TD SCH (11:00)
[2022-08-31 16:38] VITALS: BP 126/52; PULSE 69; RESP 20; TEMP 98.1
== END 2022-08-31 18:39 | disposition home health service (06) ==
LOC: JER 17:34 → INTOOBSV 19:39 → JERBED 19:39 → J4W 08-31 01:27
PROVIDERS: ADMIT Internal Medicine; ATTEND Internal Medicine
PROC: 3E0234Z Introduction of Serum, Toxoid and Vaccine into Muscle, Percutaneous Approach (ICD-10-PCS; principal; 2022-08-30)
PROC: 3E023GC Introduction of Other Therapeutic Substance into Muscle, Percutaneous Approach (ICD-10-PCS; 2022-08-30)
PROC: 3E0337Z Introduction of Electrolytic and Water Balance Substance into Peripheral Vein, Percutaneous Approach (ICD-10-PCS; 2022-08-30)
DX: R00.1 Bradycardia, unspecified (principal); N17.9 Acute kidney failure, unspecified; R55 Syncope and collapse; I10 Essential (primary) hypertension; F41.9 Anxiety disorder, unspecified; M79.645 Pain in left finger(s); Z85.46 Personal history of malignant neoplasm of prostate
CPT/HCPCS: 0241U-QW; 36415; 70450-TC; 71045-TC-FY; 72125-TC; 73130-TC-LT-FY; 76775-TC; 80053; 80061; 81003; 82550; 83735; 84100; 84439; 84443; 84484; 85025; 85027; 87086; 90471; 90715; 93005; 93010; 93306-TC; 93880-TC; 96360; 96372; 97116-GP; 97161-GP; 99285-25; G0378; J1644

== ENCOUNTER 2023-07-04 10:06 | Emergency (ER) | payer OTHER, BC ==
[2023-07-04 10:15] VITALS: BMI 25.0
[2023-07-04 11:10] LABS: BASO % 0.4 % (0-2.0); EOS % 1.3 % (0-4.5); HEMATOCRIT 41.3 % (35.4-49); HEMOGLOBIN 13.7 GM/dL (11.7-16.9); LYMPH % 10.2 % (8-40); MCH 32.4 pg (25.7-33.7); MCHC 33.2 g/dl (32.0-35.9); MEAN CELL VOLUME 97.9 fl (80-96); MEAN PLT VOLUME 7.7 fl (7.5-11.1); MONO % 5.2 % (3.8-10.2); NEUT % 82.9 % (42.8-82.8); PLATELET COUNT 211 10^3/uL (134-434); RBC 4.22 M/mm3 (4.00-5.60); WHITE BLOOD COUNT 11.7 K/mm3 (4.0-10.0)
[2023-07-04 11:37] LABS: POTASSIUM 4.2 mmol/L (3.5-5.1)
[2023-07-04 11:42] LABS: BLOOD UREA NITROGEN 33.5 mg/dL (7-18); CALCIUM 9.3 mg/dL (8.5-10.1)
[2023-07-04 11:44] LABS: CREATININE 1.3 mg/dL (0.55-1.3)
[2023-07-04 11:47] LABS: BILIRUBIN,TOTAL 0.5 mg/dL (0.2-1); TOT PROT 7.3 g/dl (6.4-8.2)
[2023-07-04 12:36] LABS: EPI CELLS 17 /uL (0-25.1); HYALINE CASTS 2 /uL (0-3.1); PH,URINE 5.5 (5.0-8.0); URINE APPEARANCE CLEAR; URINE BACTERIA 7 /uL (0-1359); URINE BILIRUBIN NEGATIVE (NEGATIVE); URINE COLOR YELLOW; URINE GLUCOSE (UA) NEGATIVE (NEGATIVE); URINE KETONE NEGATIVE (NEGATIVE); URINE LEUK ESTERASE NEGATIVE (NEGATIVE); URINE NITRITE NEGATIVE (NEGATIVE); URINE PROTEIN 2+ (NEGATIVE); URINE RBC 62 /uL (0-23.9); URINE UROBILINOGEN 0.2 mg/dL (0.2-1.0); URINE WBC 27 /uL (0-25.8)
[2023-07-04] MEDS ORDERED: ACETAMINOPHEN INJECTION 100 ML IVPB ONE (13:10)
[2023-07-04] MEDS: ACETAMINOPHEN 1000 MG/100 ML BAG IVPB ONE (13:16)
[2023-07-04] MEDS ORDERED: ONDANSETRON 4 MG/2 ML VIAL ONE (13:37)
[2023-07-04] MEDS: ONDANSETRON 4 MG/2 ML VIAL IVPUSH ONE (13:40)
[2023-07-04] MEDS ORDERED: POLYETHYLENE GLYCOL (HEALTHYLAX) 3350 17 GM PACKET ONE (13:56)
[2023-07-04] MEDS ORDERED: CEPHALEXIN MONOHYDRATE 500 MG CAPSULE (UD) ONE (13:57)
[2023-07-04] MEDS: POLYETHYLENE GLYCOL (HEALTHYLAX) 3350 17 GM PACKET PO ONE (14:00)
[2023-07-04] MEDS: CEPHALEXIN MONOHYDRATE 500 MG CAPSULE (UD) PO ONE (14:00)
[2023-07-04 15:33] VITALS: BP 145/75; PULSE 67; RESP 18; TEMP 98.3
== END 2023-07-04 16:04 | disposition home or self-care (01) ==
LOC: JER 10:06
PROC: 3E033NZ Introduction of Analgesics, Hypnotics, Sedatives into Peripheral Vein, Percutaneous Approach (ICD-10-PCS; principal; 2023-07-04)
PROC: 3E033GC Introduction of Other Therapeutic Substance into Peripheral Vein, Percutaneous Approach (ICD-10-PCS; 2023-07-04)
DX: R10.30 Lower abdominal pain, unspecified (principal); G89.29 Other chronic pain; R11.0 Nausea; Q61.3 Polycystic kidney, unspecified
CPT/HCPCS: 36415; 71046-TC-FY; 74176-TC; 80053; 81003; 83690; 85025; 87086; 99285-25; J0131

== ENCOUNTER 2023-07-23 10:40 | Day surgery (SDC) | payer OTHER, BC ==
[2023-07-19 11:31] VITALS: BMI 25.1
[2023-07-23 10:32] LABS: BASO % 0.6 % (0-2.0); EOS % 1.6 % (0-4.5); HEMATOCRIT 38.7 % (35.4-49); HEMOGLOBIN 12.8 GM/dL (11.7-16.9); LYMPH % 11.1 % (8-40); MCH 32.7 pg (25.7-33.7); MCHC 33.2 g/dl (32.0-35.9); MEAN CELL VOLUME 98.5 fl (80-96); MEAN PLT VOLUME 7.9 fl (7.5-11.1); MONO % 5.9 % (3.8-10.2); NEUT % 80.8 % (42.8-82.8); PLATELET COUNT 228 10^3/uL (134-434); RBC 3.93 M/mm3 (4.00-5.60); RDW 14.5 % (11.9-15.9); WHITE BLOOD COUNT 11.2 K/mm3 (4.0-10.0)
[2023-07-23 10:34] LABS: INR 0.97 (0.83-1.09); PROTHROMBIN TIME (PATIENT) 11.3 SEC (9.7-13.0)
[2023-07-23 11:16] LABS: POTASSIUM 5.5 mmol/L (3.5-5.1)
[2023-07-23 11:19] LABS: CALCIUM 9.1 mg/dL (8.5-10.1)
[2023-07-23 11:21] LABS: BLOOD UREA NITROGEN 41.3 mg/dL (7-18)
[2023-07-23 11:23] LABS: CREATININE 1.3 mg/dL (0.55-1.3)
[2023-07-23] MEDS ORDERED: SODIUM CHLORIDE IVPB ONE ×2 (13:00→13:15)
[2023-07-23] MEDS ORDERED: DOXYCYCLINE IVPB ONE ×2 (13:00→13:15)
[2023-07-23] MEDS ORDERED: LIDOCAINE HCL IVPB ONE (13:15)
[2023-07-23] MEDS ORDERED: FENTANYL CITRATE/PF 50 MCG/ML VIAL ONE ×3 (13:23→14:08)
[2023-07-23] MEDS ORDERED: MIDAZOLAM HCL 2 MG/2 ML SINGLE DOSE VIAL ONE (13:23)
[2023-07-23] MEDS ORDERED: ONDANSETRON 4 MG/2 ML VIAL ONE (13:35)
[2023-07-23] MEDS: ONDANSETRON 4 MG/2 ML VIAL IVPUSH ONE (13:40)
[2023-07-23] MEDS: DOXYCYCLINE IVPB ONE (13:45)
[2023-07-23] MEDS: SODIUM CHLORIDE IVPB ONE (13:45)
[2023-07-23] MEDS: LIDOCAINE HCL IVPB ONE (13:45)
[2023-07-23] MEDS: FENTANYL CITRATE/PF 50 MCG/ML VIAL IVPUSH SCH (13:50)
[2023-07-23] MEDS: MIDAZOLAM HCL 2 MG/2 ML SINGLE DOSE VIAL IVPUSH ONE ×2 (13:50→13:57)
[2023-07-23] MEDS: MIDAZOLAM HCL 2 MG/2 ML SINGLE DOSE VIAL IVPUSH SCH (13:50)
[2023-07-23] MEDS: FENTANYL CITRATE/PF 50 MCG/ML VIAL IVPUSH ONE ×3 (13:50→14:11)
[2023-07-23] MEDS ORDERED: MIDAZOLAM HCL 2 MG/2 ML SINGLE DOSE VIAL IVPUSH PRN (14:00)
[2023-07-23] MEDS ORDERED: FENTANYL CITRATE/PF 50 MCG/ML VIAL IVPUSH PRN (14:00)
[2023-07-23] MEDS: ACETAMINOPHEN 1000 MG/100 ML BAG IVPB ONE (14:15)
[2023-07-23] MEDS: oxyCODONE HCL 5 MG TABLET ONE (15:45)
[2023-07-23 15:49] VITALS: BP 149/70; PULSE 64; RESP 18; TEMP 99.5
== END 2023-07-23 16:15 | disposition home or self-care (01) ==
LOC: JRADIR 10:40
PROVIDERS: ATTEND Urology
PROC: 0T913ZX Drainage of Left Kidney, Percutaneous Approach, Diagnostic (ICD-10-PCS; principal; 2023-07-23)
PROC: 0T903ZX Drainage of Right Kidney, Percutaneous Approach, Diagnostic (ICD-10-PCS; 2023-07-23)
PROC: 3E0 Administration, Physiological Systems and Anatomical Regions, Introduction (ICD-10-PCS; 2023-07-23)
DX: N28.1 Cyst of kidney, acquired (principal)
CPT/HCPCS: 36415; 49185; 50390; 80048; 84153; 84154; 85025; 85610; 88108; 88305-TC; J0131

== ENCOUNTER 2024-01-07 03:58 | Day surgery (SDC) | payer OTHER, BC ==
[2024-01-06 08:28] VITALS: BMI 24.2
[2024-01-07] MEDS ORDERED: BUPIVACAINE HCL/PF 0.25% (2.5MG/ML) 10 ML VIAL ONE (07:38)
[2024-01-07] MEDS ORDERED: HEPARIN NA (PORCINE) 5,000 UNITS/ML 1ML VIAL ONE (07:38)
[2024-01-07] MEDS ORDERED: MIDAZOLAM HCL 2 MG/2 ML SINGLE DOSE VIAL ONE (09:09)
[2024-01-07] MEDS ORDERED: SUCCINYLCHOLINE CHLORIDE 200 MG/10 ML SYRINGE ONE (09:09)
[2024-01-07] MEDS ORDERED: PROPOFOL 20 ML ONE (09:09)
[2024-01-07] MEDS ORDERED: ROCURONIUM BROMIDE 50 MG/5 ML SYRINGE ONE ×2 (09:09→10:36)
[2024-01-07] MEDS: ceFAZolin SODIUM 1 GM VIAL IVPB ONE ×2 (09:20)
[2024-01-07] MEDS ORDERED: KETAMINE HCL 200 MG/20 ML VIAL ONE (09:30)
[2024-01-07] MEDS: BUPIVACAINE HCL/PF 0.25% (2.5MG/ML) 10 ML VIAL IJ ONE ×3 (09:42)
[2024-01-07] MEDS ORDERED: SUGAMMADEX SODIUM 200 MG/2 ML VIAL ONE (11:37)
[2024-01-07] MEDS ORDERED: LACTATED RINGERS SOLUTION 1,000 ML IV SCH (12:00)
[2024-01-07] MEDS ORDERED: ONDANSETRON 4 MG/2 ML VIAL ONE (12:34)
[2024-01-07] MEDS: ONDANSETRON 4 MG/2 ML VIAL IVPUSH PRN (12:37)
[2024-01-07] MEDS: PROMETHAZINE HCL 25 MG/1 ML VIAL IVPB PRN (12:42)
[2024-01-07] MEDS ORDERED: PROMETHAZINE HCL 25 MG/1 ML VIAL ONE (12:50)
[2024-01-07] MEDS: ALBUTEROL SULFATE 0.021% (0.63 MG/3 ML) VIAL.NEB NEB ONE (14:00)
[2024-01-07] MEDS: ALBUTEROL SO4 2.5/IPRATROPIUM 0.5 INH SOL 3 ML VIAL.NEB. NEB ONE (14:00)
[2024-01-07] MEDS ORDERED: ALBUTEROL SO4 0.083% IH SOL 2.5 MG/3 ML VIAL.NEB. NEB ONE ×2 (14:09→14:54)
[2024-01-07] MEDS: oxyCODONE HCL 5 MG TABLET PO ONE (14:42)
[2024-01-07 16:02] VITALS: RESP 18
[2024-01-07 16:14] VITALS: BP 128/65; PULSE 77; TEMP 97.8
== END 2024-01-07 16:45 | disposition home or self-care (01) ==
LOC: JASU-SURG 03:58
PROVIDERS: ATTEND Surgery
PROC: 8E0W4CZ Robotic Assisted Procedure of Trunk Region, Percutaneous Endoscopic Approach (ICD-10-PCS; 2024-01-07)
PROC: 0WQF4ZZ Repair Abdominal Wall, Percutaneous Endoscopic Approach (ICD-10-PCS; 2024-01-07)
PROC: 0YU64JZ Supplement Left Inguinal Region with Synthetic Substitute, Percutaneous Endoscopic Approach (ICD-10-PCS; principal; 2024-01-07 09:00)
DX: K40.90 Unilateral inguinal hernia, without obstruction or gangrene, not specified as recurrent (principal); D17.6 Benign lipomatous neoplasm of spermatic cord; K42.0 Umbilical hernia with obstruction, without gangrene
CPT/HCPCS: 49592; 49650; S2900; 86850; 86900; 86901; 88304-TC; 94640; 94760; C1781; J1644

== ENCOUNTER 2024-09-26 15:26 | Inpatient (IN) | payer OTHER, BC ==
[2024-09-26 16:24] LABS: ABSOLUTE IMMATURE GRANULOCYTES 0.03 x10^3/uL (0.0-0.031); BASOPHILS # 0.03 x10^3/uL (0.01-0.08); EOSINOPHIL % 5.2 % (0.8-7.0); EOSINOPHILS # 0.41 x10^3/uL (0.04-0.54); HEMATOCRIT 31.5 % (40.1-51.0); HEMOGLOBIN 10.3 g/dL (13.7-17.5); MCHC 32.7 g/dl (32.3-36.5); MEAN CELL VOLUME 96.9 fl (79.0-92.2); MEAN PLT VOLUME 9.2 fl (9.4-12.4); MONOCYTE # 0.72 x10^3/uL (0.30-0.82); MONOCYTE % 9.2 % (5.3-12.2); PLATELET COUNT 222 x10^3/uL (163-337)
[2024-09-26] MEDS: SODIUM CHLORIDE 1,000 ML IV SCH (16:29)
[2024-09-26 16:39] LABS: POTASSIUM 4.3 mmol/L (3.5-5.1)
[2024-09-26 16:42] LABS: CALCIUM 8.6 mg/dL (8.5-10.1)
[2024-09-26 16:43] LABS: ALBUMIN 3.1 g/dl (3.4-5.0); BLOOD UREA NITROGEN 26.4 mg/dL (7-18)
[2024-09-26 16:46] LABS: CREATININE 1.3 mg/dL (0.55-1.3)
[2024-09-26 16:47] LABS: BILIRUBIN,TOTAL 0.2 mg/dL (0.2-1); TOT PROT 5.9 g/dl (6.4-8.2)
[2024-09-26 16:53] LABS: INR 1.08 (0.83-1.09); PROTHROMBIN TIME (PATIENT) 11.8 SEC (9.7-13.0)
[2024-09-26 16:56] LABS: ACTIVATED PTT 29.7 SECONDS (25.2-36.5)
[2024-09-26] MEDS ORDERED: levETIRAcetam 500 MG/5 ML INJECTION VIAL IVPB ONE (18:13)
[2024-09-26] MEDS: levETIRAcetam 500 MG/5 ML INJECTION VIAL IVPB ONE ×2 (18:19→20:43)
[2024-09-26] MEDS ORDERED: ONDANSETRON 4 MG/2 ML VIAL ONE (18:28)
[2024-09-26] MEDS: ONDANSETRON 4 MG/2 ML VIAL IVPUSH ONE (18:31)
[2024-09-26 18:56] LABS: URINE APPEARANCE CLEAR; URINE BILIRUBIN NEGATIVE (NEGATIVE); URINE COLOR YELLOW; URINE GLUCOSE (UA) NEGATIVE (NEGATIVE); URINE KETONE NEGATIVE (NEGATIVE); URINE PROTEIN 30 (NEGATIVE)
[2024-09-26 18:57] LABS: URINE LEUK ESTERASE NEGATIVE (NEGATIVE); URINE NITRITE NEGATIVE (NEGATIVE); URINE UROBILINOGEN 0.2 mg/dL (0.2-1.0)
[2024-09-26] MEDS ORDERED: FAMOTIDINE 20 MG/50 ML IVPB 20 MG/50 ML MG IVPB ONE (20:09)
[2024-09-26] MEDS: FAMOTIDINE 20 MG/50 ML IVPB 20 MG/50 ML MG IVPB ONE (20:16)
[2024-09-26] MEDS ORDERED: ROSUVASTATIN CA 5 MG TABLET ONE (22:03)
[2024-09-26] MEDS ORDERED: MELATONIN 5 MG TABLETS ONE (22:04)
[2024-09-26] MEDS: MELATONIN 5 MG TABLETS PO PRN (22:07)
[2024-09-26] MEDS: ROSUVASTATIN CA 5 MG TABLET PO SCH (22:07)
[2024-09-26] MEDS ORDERED: LORazepam 2 MG/ML SDV VIAL ONE (22:39)
[2024-09-26] MEDS: LORazepam 2 MG/ML SDV VIAL IVPUSH ONE (23:31)
[2024-09-27] MEDS: LORazepam 1 MG TABLET PO SCH (06:18)
[2024-09-27 06:57] LABS: HEMATOCRIT 32.7 % (40.1-51.0); HEMOGLOBIN 10.7 g/dL (13.7-17.5); MCHC 32.7 g/dl (32.3-36.5); MEAN CELL VOLUME 96.7 fl (79.0-92.2); MEAN PLT VOLUME 9.7 fl (9.4-12.4); PLATELET COUNT 224 x10^3/uL (163-337)
[2024-09-27] MEDS ORDERED: traMADol HCL 50 MG TABLET PO SCH (07:00)
[2024-09-27 07:09] LABS: POTASSIUM 4.2 mmol/L (3.5-5.1)
[2024-09-27 07:12] LABS: ALBUMIN 3.1 g/dl (3.4-5.0); BLOOD UREA NITROGEN 25.1 mg/dL (7-18); CALCIUM 8.9 mg/dL (8.5-10.1)
[2024-09-27 07:13] LABS: MAGNESIUM 2.3 mg/dL (1.8-2.4)
[2024-09-27 07:16] LABS: CREATININE 1.2 mg/dL (0.55-1.3); PHOSPHOROUS 3.5 mg/dL (2.5-4.9)
[2024-09-27 07:17] LABS: BILIRUBIN,TOTAL 0.4 mg/dL (0.2-1)
[2024-09-27] MEDS: ESCITALOPRAM OXALATE 20 MG TABLET PO SCH (09:32)
[2024-09-27] MEDS: amLODIPine BESYLATE 5 MG TABLET (FP) PO SCH (09:32)
[2024-09-27] MEDS: levETIRAcetam 500 MG/5 ML INJECTION VIAL IVPB SCH (09:32)
[2024-09-27] MEDS: ONDANSETRON *ODT* 4 MG TABLET SL PRN (12:07)
[2024-09-27] MEDS: LORazepam 2 MG/ML SDV VIAL IVPUSH PRN (12:27)
[2024-09-27] MEDS ORDERED: traMADol HCL 50 MG TABLET PO PRN (20:00)
[2024-09-28 07:45] LABS: HEMATOCRIT 33.9 % (40.1-51.0); HEMOGLOBIN 11.1 g/dL (13.7-17.5); MCHC 32.7 g/dl (32.3-36.5); MEAN CELL VOLUME 95.2 fl (79.0-92.2); MEAN PLT VOLUME 9.7 fl (9.4-12.4); PLATELET COUNT 221 x10^3/uL (163-337); RDW 12.8 % (12.6-16.6)
[2024-09-28] MEDS: ACETAMINOPHEN 1000 MG/100 ML BAG IVPB ONE (07:46)
[2024-09-28 08:01] LABS: POTASSIUM 4.3 mmol/L (3.5-5.1)
[2024-09-28 08:11] LABS: CALCIUM 9.1 mg/dL (8.5-10.1)
[2024-09-28 08:12] LABS: ALBUMIN 3.3 g/dl (3.4-5.0); BLOOD UREA NITROGEN 22.3 mg/dL (7-18); MAGNESIUM 2.2 mg/dL (1.8-2.4)
[2024-09-28 08:15] LABS: CREATININE 1.1 mg/dL (0.55-1.3)
[2024-09-28 08:17] LABS: BILIRUBIN,TOTAL 0.4 mg/dL (0.2-1); TOT PROT 6.2 g/dl (6.4-8.2)
[2024-09-28] MEDS: oxyCODONE HCL 5 MG TABLET PO ONE (08:52)
[2024-09-28] MEDS: oxyCODONE HCL 5 MG TABLET PO PRN (15:39)
[2024-09-28] MEDS: ONDANSETRON 4 MG/2 ML VIAL IVPUSH PRN (18:04)
[2024-09-28] MEDS: levETIRAcetam 500 MG/5 ML INJECTION VIAL IVPB SCH (21:12)
[2024-09-28] MEDS: CHLORHEXIDINE GLUCONATE 4% CLEANSER FOR DECOLONIZATION TP SCH (21:12)
[2024-09-28] MEDS: MELATONIN 5 MG TABLETS PO PRN (21:13)
[2024-09-28] MEDS: MUPIROCIN 2% TOPICAL OINTMENT FOR DECOLONIZATION NS SCH (21:22)
[2024-09-28] MEDS: ROSUVASTATIN CA 5 MG TABLET PO SCH (21:22)
[2024-09-28] MEDS: LORazepam 2 MG/ML SDV VIAL IVPUSH PRN (22:13)
[2024-09-29 06:56] LABS: MCHC 33.3 g/dl (32.3-36.5); MEAN CELL VOLUME 95.4 fl (79.0-92.2); MEAN PLT VOLUME 9.7 fl (9.4-12.4); PLATELET COUNT 204 x10^3/uL (163-337); RDW 12.7 % (12.6-16.6)
[2024-09-29 07:00] LABS: CALCIUM 9.1 mg/dL (8.5-10.1)
[2024-09-29 07:01] LABS: ALBUMIN 3.1 g/dl (3.4-5.0); BLOOD UREA NITROGEN 26.2 mg/dL (7-18)
[2024-09-29 07:04] LABS: CREATININE 1.2 mg/dL (0.55-1.3)
[2024-09-29 07:05] LABS: BILIRUBIN,TOTAL 0.4 mg/dL (0.2-1); TOT PROT 5.8 g/dl (6.4-8.2)
[2024-09-29] MEDS: oxyCODONE HCL 5 MG TABLET PO PRN (07:59)
[2024-09-29] MEDS: amLODIPine BESYLATE 10 MG TABLET (FP) PO SCH (09:55)
[2024-09-29] MEDS: ESCITALOPRAM OXALATE 20 MG TABLET PO SCH (09:55)
[2024-09-29] MEDS: LORazepam 1 MG TABLET PO SCH (09:55)
[2024-09-29] MEDS: SODIUM CHLORIDE 1,000 ML IV STA (10:43)
[2024-09-29] MEDS ORDERED: ACETAMINOPHEN 325 MG TABLET (FP) PO PRN (12:47)
[2024-09-29] MEDS: LIDOCAINE 4% PATCH TP SCH (13:29)
[2024-09-29] MEDS: GABAPENTIN 100 MG CAPSULE PO SCH (13:29)
[2024-09-29] MEDS: ACETAMINOPHEN 325 MG TABLET (FP) PO PRN (13:31)
[2024-09-29] MEDS: LIDOCAINE PATCH REMOVAL MC SCH (21:05)
[2024-09-30 06:28] LABS: POTASSIUM 4.1 mmol/L (3.5-5.1)
[2024-09-30 06:36] LABS: BLOOD UREA NITROGEN 24.3 mg/dL (7-18); CALCIUM 9.1 mg/dL (8.5-10.1); MAGNESIUM 2.1 mg/dL (1.8-2.4)
[2024-09-30 06:40] LABS: CREATININE 1.1 mg/dL (0.55-1.3); PHOSPHOROUS 3.5 mg/dL (2.5-4.9)
[2024-09-30 06:41] LABS: BILIRUBIN,TOTAL 0.3 mg/dL (0.2-1); TOT PROT 5.7 g/dl (6.4-8.2)
[2024-09-30 06:46] LABS: ABSOLUTE IMMATURE GRANULOCYTES 0.04 x10^3/uL (0.0-0.031); BASOPHILS # 0.04 x10^3/uL (0.01-0.08); EOSINOPHIL % 6.4 % (0.8-7.0); HEMATOCRIT 35.3 % (40.1-51.0); HEMOGLOBIN 11.7 g/dL (13.7-17.5); MCHC 33.1 g/dl (32.3-36.5); MEAN CELL VOLUME 95.9 fl (79.0-92.2); MEAN PLT VOLUME 10.2 fl (9.4-12.4); MONOCYTE # 0.97 x10^3/uL (0.30-0.82); MONOCYTE % 10.4 % (5.3-12.2); PLATELET COUNT 199 x10^3/uL (163-337); RDW 12.8 % (12.6-16.6)
[2024-09-30] MEDS ORDERED: SENNOSIDES 8.6MG TABLET (FP) PO PRN (14:25)
[2024-09-30] MEDS: DOCUSATE SODIUM 100 MG CAPSULE (FP) PO SCH (14:33)
[2024-09-30 14:35] VITALS: RESP 16
[2024-09-30] MEDS: POLYETHYLENE GLYCOL (HEALTHYLAX) 3350 17 GM PACKET PO SCH (14:35)
[2024-09-30 14:47] VITALS: BMI 23.6
[2024-09-30 16:13] VITALS: BP 113/62; PULSE 71; TEMP 97.6
== END 2024-09-30 19:36 | disposition home or self-care (01) | DRG 92 ==
LOC: JER 15:26 → JERBED 17:13 → J4S 22:55 → JICU 09-28 18:36 → J2W 09-29 22:55
PROVIDERS: ADMIT Internal Medicine; ATTEND Internal Medicine
DX: S06.36 Traumatic hemorrhage of cerebrum, unspecified (principal); N30.40 Irradiation cystitis without hematuria; F41.8 Other specified anxiety disorders; R31.9 Hematuria, unspecified; N18.30 Chronic kidney disease, stage 3 unspecified; F17.210 Nicotine dependence, cigarettes, uncomplicated; I95.1 Orthostatic hypotension; E78.5 Hyperlipidemia, unspecified; W19.XXXS Unspecified fall, sequela; Y93.9 Activity, unspecified; Y92.89 Other specified places as the place of occurrence of the external cause; Y99.9 Unspecified external cause status
CPT/HCPCS: 36415; 70450-TC; 70496-TC; 70498-TC; 70544-TC; 70551-TC; 80053; 80061; 80177; 81003; 82550; 82962; 83036; 83605; 83735; 84100; 84484; 85025; 85027; 85610; 85730; 86850; 86900; 86901; 87040; 93005; 93010; 93306-TC; 95816; 97116-GP; 97161-GP; 99291; Q0162